=== PATIENT | male | born 1970 | race Caucasian/White ===

== ENCOUNTER 2020-02-10 13:52 | Outpatient (REF) | payer MEDICAID, SELFPAY ==
[2020-02-10 14:14] LABS: HCT 41.7 % (40.0-50.0); HGB 14.3 g/dL (13.5-17.5); Mean Corp. HGB Concentration 34.3 g/dL (32.0-36.0); Mean Corpuscular Hemoglobin 29.7 pg (27.0-33.0); Mean Corpuscular Volume 86.7 fL (80-95); Mean Platelet Volume 11.1 fL (8.0-11.0); Platelet Count 221 x1000/uL (130-400); RBC 4.81 m/cumm (4.50-6.00); RBC Distribution Width 12.9 % (11.8-14.1); White Blood Cell Count 4.41 k/cumm (4.4-10.8)
[2020-02-10 14:23] LABS: ALT 31 U/L (16-63); AST 23 U/L (15-37); Albumin 4.5 g/dL (3.4-5.0); Alkaline Phosphatase 73 U/L (46-116); Anion Gap 6.7 mmol/L (3-11); BUN 14 mg/dL (7-18); Bilirubin, Total 0.2 mg/dL (0.2-1.0); CO2 33.3 mmol/L (21.0-32.0); CREATININE 0.78 mg/dL (0.70-1.30); Calcium 9.1 mg/dL (8.5-10.1); Chloride 102 mmol/L (98-107); Glucose 120 mg/dL (74-106); Potassium 4.5 mmol/L (3.5-5.1); Sodium 142 mmol/L (136-145); Total Protein 7.9 g/dL (6.4-8.2)
[2020-02-10 14:35] LABS: Calculated LDL 104 mg/dL (<100); Cholesterol 166 mg/dL (<200); HDL Cholesterol 53 mg/dL (40-60); Triglyceride 47 mg/dL (<150)
== END 2020-02-10 14:12 ==
LOC: NCHCN 13:52
PROVIDERS: PCP Nurse Practitioner Family; Visit Provider Nurse Practitioner Family
DX: Z13.220 Encounter for screening for lipoid disorders (principal); Z13.228 Encounter for screening for other metabolic disorders; Z13.0 Encounter for screening for diseases of the blood and blood-forming organs and certain disorders involving the immune mechanism; Z00.00 Encounter for general adult medical examination without abnormal findings
CPT/HCPCS: 80053; 80061; 85027

== ENCOUNTER 2020-02-21 01:18 | Emergency (ER) | payer MEDICAID, SELFPAY ==
[2020-02-21 01:13] VITALS: BP 122/83; PULSE 141; RESP 28; TEMP 38; O2SAT 93
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
[2020-02-21 01:31] LABS: Abs Immature Grans 0.04 k/cumm (0.0-0.09); Absolute Basophil Count 0.01 k/cumm (0.0-0.2); Absolute Eosinophil Count 0.03 k/cumm (0.0-0.7); Absolute Lymphocyte Count 1.07 k/cumm (1.2-3.4); Absolute Monocyte Count 0.73 k/cumm (0.11-0.7); Basophils % 0.1; Eosinophils % 0.3; HCT 41.7 % (40.0-50.0); Immature Grans % 0.4 %; Lymphocytes % 9.4; Mean Corpuscular Hemoglobin 30.2 pg (27.0-33.0); Mean Corpuscular Volume 83.9 fL (80-95); Mean Platelet Volume 9.5 fL (8.0-11.0); Monocytes % 6.4; Neutrophils % 83.4; Platelet Count 295 x1000/uL (130-400); RBC 4.97 m/cumm (4.50-6.00); RBC Distribution Width 12.8 % (11.8-14.1); White Blood Cell Count 11.39 k/cumm (4.4-10.8)
[2020-02-21] MEDS: Normal Saline 1,000 ML 1000 ML IV (01:31)
[2020-02-21] MEDS: LORazepam 2 MG/ML VIAL 1 MG IVP (01:31)
[2020-02-21] MEDS: Ketorolac 15 MG/ML VIAL IVP (01:31)
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
[2020-02-21 01:45] LABS: ALT 32 U/L (16-63); AST 30 U/L (15-37); Albumin 4.5 g/dL (3.4-5.0); Alkaline Phosphatase 73 U/L (46-116); BUN 7 mg/dL (7-18); Bilirubin, Total 0.3 mg/dL (0.2-1.0); CREATININE 1.21 mg/dL (0.70-1.30); Calcium 8.9 mg/dL (8.5-10.1); Chloride 104 mmol/L (98-107); Glucose 147 mg/dL (74-106); Potassium 3.1 mmol/L (3.5-5.1); Sodium 143 mmol/L (136-145); Total Protein 8.2 g/dL (6.4-8.2)
[2020-02-21 02:02] LABS: INR 1.1 (0.9-1.1)
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
[2020-02-21 02:29] VITALS: BP 114/69; PULSE 137; RESP 18; O2SAT 95
[2020-02-21] MEDS: Normal Saline Flush 10 ML SYR IVP (02:45)
[2020-02-21] MEDS: Normal Saline - Diluent 50 ML VIAL IV (02:46)
[2020-02-21] MEDS: Omnipaque 350 MG/ML 100 ML BTL IJ (02:46)
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
--- NOTE | 2020-02-21 02:53 | NUR.NOTE ---
MD Cortes in to discuss CT results. Pt declining admission, states he is leaving AMA.
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
[2020-02-21 03:27] VITALS: BP 121/95; PULSE 137; RESP 18; TEMP 37.2; O2SAT 96
--- NOTE | 2020-02-23 21:52 | NUR.NOTE ---
REFERRAL FAXED TO PCP FOR FOLLOW UP CARE Nursing Note:
== END 2020-02-21 03:15 | disposition left against medical advice (07) ==
PROVIDERS: Emergency Provider Emergency Medicine; PCP Nurse Practitioner Family
DX: S22.42XA Multiple fractures of ribs, left side, initial encounter for closed fracture (principal); S27.0XXA Traumatic pneumothorax, initial encounter; Y04.0XXA Assault by unarmed brawl or fight, initial encounter; Z53.29 Procedure and treatment not carried out because of patient's decision for other reasons
CPT/HCPCS: 71275; 74177; 80053; 96374; 96375; 99285; 70450; 72125; 85025; 85610; 85730; 99284; J1885; J2060; J3490; L3650

== ENCOUNTER 2020-02-21 18:25 | Emergency (ER) | payer MEDICAID, SELFPAY ==
[2020-02-21 18:30] VITALS: BP 131/80; PULSE 105; RESP 16; TEMP 37; O2SAT 98
--- NOTE | 2020-02-21 18:30 | DI.RAD_ITS ---
EXAM: XR CHEST 2V PA LATERAL CLINICAL HISTORY: r/o worsening PTX, infection TECHNIQUE: 2D digital imaging was performed. COMPARISON: No exams were available for comparison FINDINGS: MEDIASTINUM: Normal. HEART: Normal. PULMONARY VASCULATURE: Normal. LUNGS: There is an infiltrate in the right lung base medially. PLEURAL SPACE: Pleural effusion is present. Pneumothorax is not visualized on this examination. BONE:No fractures identified on this chest x-ray. Please refer to the CT scan of the chest, abdomen and pelvis. OTHER FINDINGS:Normal. IMPRESSION: Opacity in the right lung base medially. This may represent atelectasis, pneumonia or contusion. No significant pneumothorax identified on this chest x-ray. DATA REPOSITORY: RADIATION DOSE DELIVERED:
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
--- NOTE | 2020-02-21 19:13 | DI.VRAD_ITS ---
PROCEDURE INFORMATION: Exam: XR Chest, 2 Views Exam date and time: 02/21/2020 6:37 PM Age: 49 years old Clinical indication: Condition or disease; Other: Pneumothorax; Additional info: R/O worsening ptx, infection. Diagnosed with/l rib FX this morning TECHNIQUE: Imaging protocol: XR of the chest Views: 2 views. COMPARISON: CT CHEST PE ABD PELVIS W 02/21/2020 2:10 AM FINDINGS: Lungs: Opacity in the medial right base may represent atelectasis, pneumonia, or contusion. Pleural space: No significant pneumothorax visualized on the chest x-ray. Heart/Mediastinum: Unremarkable. No cardiomegaly. Bones/joints: Left rib fracture is not visualized well on the chest x-ray. IMPRESSION: 1. Opacity in the medial right base may represent atelectasis, pneumonia, or contusion. 2. No significant pneumothorax visualized on the chest x-ray. 3. Left rib fracture is not visualized well on the chest x-ray. Dictated and Authenticated by: Mira Sanchez MD. Ordering:MIKAYLA Kinsey MD
== END 2020-02-21 19:50 | disposition left against medical advice (07) ==
PROVIDERS: Emergency Provider Physician Assistant; PCP Nurse Practitioner Family
DX: S22.42XD Multiple fractures of ribs, left side, subsequent encounter for fracture with routine healing (principal); S27.0XXD Traumatic pneumothorax, subsequent encounter; Y04.0XXD Assault by unarmed brawl or fight, subsequent encounter; Z53.29 Procedure and treatment not carried out because of patient's decision for other reasons
CPT/HCPCS: 99283; 71046

== ENCOUNTER 2020-03-09 19:58 | Outpatient (REF) | payer MEDICAID, SELFPAY ==
[2020-03-09 19:27] LABS: Hemoglobin A1C 5.6 % (3.8-5.6)
[2020-03-09 19:29] LABS: TSH (W/Ref FT4) 1.71 uIU/mL (0.36-3.74)
== END 2020-03-09 20:18 ==
LOC: NCHCN 19:58
PROVIDERS: PCP Nurse Practitioner Family; Visit Provider Nurse Practitioner Family
DX: R73.01 Impaired fasting glucose (principal); R63.0 Anorexia
CPT/HCPCS: 83036; 84443

== ENCOUNTER 2020-11-26 13:31 | Emergency (ER) | payer MEDICAID, SELFPAY ==
[2020-11-26] VITALS (26 sets, daily range): BP systolic 76–101; BP diastolic 39–69; PULSE 66–91; RESP 6–26; TEMP 37.2; O2SAT 92–100
--- NOTE | 2020-11-26 13:30 | DI.CT_ITS ---
EXAM: CT ABDOMEN PELVIS W CLINICAL HISTORY: Abdominal Pain. TECHNIQUE: Imaging Protocol: Axial computed tomography images with coronal and sagittal reformatted images were created and reviewed CONTRAST MATERIAL: Intravenous: Omnipaque 100cc Oral: None COMPARISON: CT CT CHEST PE ABD PELVIS W from 02/21/2020 FINDINGS: VISUALIZED LUNG BASES: No nodules nor pleural effusions evident. No pneumothorax seen. ABDOMEN: There is no ascites. No evidence of bowel wall nor mesenteric hematoma. LIVER: No hepatic laceration. No perihepatic fluid. No significant hepatic lesions. GALLBLADDER/BILIARY: No obvious gallbladder pathology. CBD is not dilated. PANCREAS: There are few small parenchymal calcifications in the pancreatic head. No obvious mass. N o ductal dilatation. No peripancreatic streaking. SPLEEN: Spleen size is upper normal. No splenic laceration or perisplenic fluid. No splenic lesions . Splenic and portal veins are patent. Splenic and portal veins are patent. ADRENALS: There are no significant adrenal masses. KIDNEYS:No evidence of renal trauma. No solid renal masses. No calculi nor hydronephrosis.. ABDOMINAL AORTA: Unremarkable. No evidence of trauma. No aneurysm. Aortoiliac segments and common femoral arteries are also unremarkable. ABDOMINAL WALL/GI: No evidence of significant anterior abdominal wall hernia. No bowel obstruction. PELVIS: GI: No evidence of appendicitis.No evidence of sigmoid diverticulitis. LYMPH NODES: There is no intrapelvic nor inguinal adenopathy. REPRODUCTIVE: Prostate not enlarged. URINARY BLADDER: Slightly distended otherwise unremarkable. OSSEOUS: No significant osseous lesions. IMPRESSION: 1. No significant acute findings in the abdomen and pelvis. RADIATION DOSE DELIVERED: 681.05mGy.cm Total DLP DATA REPOSITORY: All CT scans at this facility are submitted to the National Radiology Data Registry (NRDR) Dose Index Registry (DIR) with the [employer] (ACR). RADIATION OPTIMIZATION: All CT scans at this facility use at least one of these dose optimization te chniques: automated exposure control; mA and/or kV adjustment per patient size (includes targeted exa ms where dose is matched to clinical indication); or iterative reconstruction.
--- NOTE | 2020-11-26 13:30 | RT.EKG_ITS ---
APPROVED REPORT Exam: Resting ECG Patient Location: E HR:87 bpm ECG Measurements Heart Rate 87 AXIS ND 140 P 25 QRSd 99 QRS 74 QT 382 T 18 QTc 461 Conclusion Sinus rhythm...normal P axis, V-rate 60- 99
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
[2020-11-26 14:02] LABS: Abs Immature Grans 0.02 10^3/uL (0.0-0.06); Absolute Basophil Count 0.02 10^3/uL (0.0-0.2); Absolute Eosinophil Count 0.09 10^3/uL (0.0-0.7); Absolute Monocyte Count 0.54 10^3/uL (0.1-0.8); Absolute Neutrophil Count 3.91 10^3/uL (1.2-6.7); Basophils % 0.3; Eosinophils % 1.4; HCT 38.3 % (40.0-50.0); HGB 13.3 g/dL (13.5-17.5); Immature Grans % 0.3; Lymphocytes % 28.2; MCHC 34.7 % (32.0-36.0); MCV 83.6 fL (80-95); Monocytes % 8.5; Neutrophils % 61.3; Nucleated RBC 0 %; Platelet Count 230 10^3/uL (130-400); RBC 4.58 10^6/uL (4.36-5.78); RDW 12.2 % (11.8-14.1); WBC 6.38 10^3/uL (4.4-10.8)
[2020-11-26] MEDS: MORPHine 10 MG/ML VIAL 4 MG IVP (14:05)
[2020-11-26] MEDS: Ondansetron 4 MG/2 ML VIAL IVP (14:05)
[2020-11-26 14:06] LABS: Lactate 1.7 mmol/L (0.6-1.4)
[2020-11-26] MEDS: Normal Saline 1,000 ML 1000 ML IV ×2 (14:11→15:31)
[2020-11-26 14:23] LABS: ALT 40 U/L (16-63); AST 41 U/L (15-37); Albumin 3.9 g/dL (3.4-5.0); Alkaline Phosphatase 77 U/L (46-116); Anion Gap 8.4 mmol/L (3-11); BUN 22 mg/dL (7-18); Bilirubin, Total 0.6 mg/dL (0.2-1.0); CO2 27.6 mmol/L (21.0-32.0); CREATININE 1.01 mg/dL (0.70-1.30); Calcium 9.4 mg/dL (8.5-10.1); Chloride 101 mmol/L (98-107); Glucose 108 mg/dL (74-106); Lipase 192 U/L (73-393); Potassium 3.4 mmol/L (3.5-5.1); Sodium 137 mmol/L (136-145); Total Protein 7.5 g/dL (6.4-8.2)
[2020-11-26 14:29] LABS: Troponin I < 0.05 ng/mL (<0.06)
[2020-11-26] MEDS: Omnipaque 350 MG/ML 100 ML BTL IJ (15:27)
[2020-11-26 15:47] LABS: Bilirubin Negative (Negative); Blood Negative (Negative); Clarity Clear (Clear); Glucose Negative (Negative); Ketones Negative (Negative); Leukocyte Esterase Negative (Negative); Nitrite Negative (Negative); Specific Gravity 1.025 (1.005-1.025); Urobilinogen 0.2 EU/dL (Up TO 0.2)
[2020-11-26 16:15] LABS: *AMPHETAMINES SCREEN URINE Negative (Negative); *BARBITURATES SCREEN URINE Negative (Negative); *BENZODIAZEPINES SCREEN URINE Negative (Negative); Cannabinoids THC Negative (Negative); Cocaine Screen,Urine Negative (Negative); METHADONE URINE SCREEN Negative (Negative); OPIATES URINE SCREEN POSITIVE (Negative)
[2020-11-26 16:21] LABS: Tricyclic Antidepressants Negative (Negative)
== END 2020-11-26 16:09 | disposition home or self-care (01) ==
PROVIDERS: Emergency Provider Registered Nurse Emergency; PCP Nurse Practitioner Family
DX: R10.31 Right lower quadrant pain (principal); M54.5 Low back pain; I95.0 Idiopathic hypotension
CPT/HCPCS: 36415; 80053; 80307; 83690; 93005; 96361; 96374; 96375; 99285; 74177; 81003; 83605; 83735; 84484; 85025; 93010; J2270; J2405; J3490

== ENCOUNTER 2021-07-29 11:48 | Emergency (ER) | payer MEDICAID, SELFPAY ==
[2021-07-29 11:53] VITALS: BP 115/70; PULSE 84; RESP 15; TEMP 36.5; O2SAT 99
--- NOTE | 2021-07-29 12:09 | ED.GENADUL_ITS ---
Discharge Plan Disposition Patient Disposition: HOME Condition: Good Discharge Details Clinical Impression: Rash Primary Care Provider: Sharmaine Rodriguez ED Provider: Inés Tuttle Home Meds and New Rx's Prescriptions: New cephalexin 500 mg capsule 500 mg PO QID Qty: 28 RF: 0 Continued escitalopram oxalate [Lexapro] 20 mg Tablet 20 mg PO DAILY RF: 0 omeprazole 20 mg Tablet,Delayed Release (Dr/Ec) 20 mg PO DAILY RF: 0 buprenorphine-naloxone [Suboxone] 8-2 mg Film 2 film SUBLINGUAL DAILY RF: 0 Latuda 60 mg Tablet 60 mg PO DAILY RF: 0 clonidine HCl 0.2 mg tablet 0.2 mg PO TID RF: 0 gabapentin 300 mg capsule 300 mg PO BID RF: 0 dexmethylphenidate [Focalin XR] 15 mg capsule,ER biphasic 50-50 15 mg PO DAILY RF: 0 dexmethylphenidate [Focalin XR] 40 mg capsule,ER biphasic 50-50 40 mg PO DAILY RF: 0 prazosin 1 mg capsule 1 mg PO DAILY RF: 0 Discharge Instructions Instructions: Acute Rash (ED) Additional Instructions: Take antibiotic as prescribed Yogurt daily while on antibiotic Warm compresses Should you have persistent lesions in 1 week, recommend outpatient mammogram at the discretion of your doctor, please be reassessed by your doctor at this time Medical Decision Making Patient placed on antibiotic, will need a mammogram with persistent lesion Pain out appears to be infectious, less tender and erythematous, no fluctuance, no indication for aspiration at this time Given the threshold for return with new or worsening complaints Afebrile nontoxic, denies any current IV drug abuse Discharged home in stable condition with stable vitals Recheck in 1 week recommended, earlier with worsening symptoms Keflex prescription applied HPI General Mode of arrival: ambulatory . Date/Time Provider Initiated Documentation: 07/29/21 12:04 . Limitations to Documentation: no limitations . Information obtained by: patient . HPI Narrative: This 51-year-old male presents with left chest which is morning. Denies any additional complaints. Denies any chest pain or shortness of breath. Denies any dizziness or weakness. Denies any history of breast cancer. Denies any drainage from nipple. Denies any history of IV drug abuse in the past 5 years. Related Data Home Medications Medication Instructions Recorded Confirmed Latuda 60 mg PO DAILY 02/21/20 07/29/21 buprenorphine-naloxone [Suboxone] 2 film SUBLINGUAL DAILY 02/21/20 07/29/21 escitalopram oxalate [Lexapro] 20 mg PO DAILY 02/21/20 07/29/21 omeprazole 20 mg PO DAILY 02/21/20 07/29/21 cephalexin 500 mg PO QID #28 cap 07/29/21 clonidine HCl 0.2 mg PO TID 07/29/21 07/29/21 dexmethylphenidate [Focalin XR] 15 mg PO DAILY 07/29/21 07/29/21 dexmethylphenidate [Focalin XR] 40 mg PO DAILY 07/29/21 07/29/21 gabapentin 300 mg PO BID 07/29/21 07/29/21 prazosin 1 mg PO DAILY 07/29/21 07/29/21 Previous Rx's Medication Instructions Recorded cephalexin 500 mg PO QID #28 cap 07/29/21 Allergies Allergy/AdvReac Type Severity Reaction Status Date / Time sulfamethoxazole Allergy Hives Unverified 07/29/21 11:58 [From Bactrim] trimethoprim [From Bactrim] Allergy Hives Unverified 07/29/21 11:58 General Stated Complaint: RashLesion MANUEL: 4 Review of Systems All systems reviewed & are unremarkable except as noted in HPI and below PFSH Medical History Narcotic abuse in remission Surgical History History of appendectomy Social History Smoking/Tobacco Use Status: Never Smoking risk assessment performed?: Yes Alcohol Intake: current Alcohol Intake frequency: holidays/special occasions only Alcohol type: beer Substance use type: other Details: suboxone Do you feel safe at home: Yes Do you feel safe in your relationship?: Yes Exam Const General: cooperative and no acute distress Eyes Pupils: PERRL Chest Chest/axillae images: 1. Erythematous lesion, tender, approximately 6 mm, no fluctuance, no crepitus, no nipple discharge, no obvious lymphangitis Course Vital Signs Vital signs: Vital Signs Temperature 36.5 C 07/29/21 11:53 Pulse 84 07/29/21 11:53 Respiratory Rate 15 07/29/21 11:53 Blood Pressure 115/70 07/29/21 11:53 Pulse Oximetry 99 07/29/21 11:53 Temperature 36.5 C 07/29/21 11:53 Temperature Source Temporal Artery Scan 07/29/21 11:53 Pulse 84 07/29/21 11:53 Respiratory Rate 15 07/29/21 11:53 Respiratory Effort Non-Labored 07/29/21 11:57 Blood Pressure 115/70 07/29/21 11:53 Blood Pressure Position Sitting 07/29/21 11:53 Pulse Oximetry 99 07/29/21 11:53 Oxygen Delivery Method Room Air 07/29/21 11:53 Oxygen Flow Rate 0 07/29/21 11:53 Pain Level 7 07/29/21 11:53
== END 2021-07-29 12:18 | disposition home or self-care (01) ==
PROVIDERS: Emergency Provider Physician Assistant; PCP Nurse Practitioner Family
DX: R21 Rash and other nonspecific skin eruption (principal)
CPT/HCPCS: 99283

== ENCOUNTER 2022-05-27 15:04 | Outpatient (REF) | payer MEDICAID, SELFPAY ==
[2022-05-27 15:22] LABS: HCT 42.6 % (40.0-50.0); HGB 14.3 g/dL (13.5-17.5); MCH 28.8 pg (27.0-33.0); MCHC 33.6 % (32.0-36.0); MCV 86 fL (80-95); MPV 10.1 fL (8.0-11.0); Platelet Count 250 10^3/uL (130-400); RBC 4.96 10^6/uL (4.36-5.78); RDW 13.1 % (11.8-14.1); RDW-SD 40.6 fL; WBC 6.72 10^3/uL (4.4-10.8)
[2022-05-27 15:38] LABS: ALT 70 U/L (16-63); AST 45 U/L (15-37); Albumin 4.5 g/dL (3.4-5.0); Alkaline Phosphatase 78 U/L (46-116); Anion Gap 12.9 mmol/L (3-11); BUN 17 mg/dL (7-18); Bilirubin, Total 0.6 mg/dL (0.2-1.0); CO2 25.1 mmol/L (21.0-32.0); CREATININE 1.1 mg/dL (0.70-1.30); Calcium 9.5 mg/dL (8.5-10.1); Calculated LDL 129 mg/dL (<100); Chloride 100 mmol/L (98-107); Cholesterol 207 mg/dL (<200); Glucose 142 mg/dL (74-106); HDL Cholesterol 70 mg/dL (40-60); Potassium 3.7 mmol/L (3.5-5.1); Sodium 138 mmol/L (136-145); TSH (W/Ref FT4) 1.23 uIU/mL (0.36-3.74); Total Protein 8.2 g/dL (6.4-8.2); Triglyceride 44 mg/dL (<150)
[2022-05-27 17:39] LABS: Hemoglobin A1C 5.7 % (<5.7)
== END 2022-05-27 15:05 | disposition home or self-care (01) ==
LOC: NCHCN 15:04
PROVIDERS: PCP Nurse Practitioner Family; Visit Provider Nurse Practitioner Family
DX: R63.4 Abnormal weight loss (principal); R73.03 Prediabetes; R79.89 Other specified abnormal findings of blood chemistry; Z00.00 Encounter for general adult medical examination without abnormal findings
CPT/HCPCS: 80053; 80061; 85027; 83036; 84443

== ENCOUNTER → 2022-06-01 02:14 | Outpatient (CLI) | payer MEDICAID, SELFPAY ==
--- NOTE | 2022-06-01 | DI.RAD_ITS ---
Exam(s) XR CHEST 2V PA LATERAL EXAM: XR CHEST 2V PA LATERAL CLINICAL HISTORY: SOB R06.02. TECHNIQUE: 2D digital imaging was performed. COMPARISON: CR,XR XR CHEST 2V PA LATERAL from 02/21/2020 FINDINGS: 2 views: Heart size is normal. The mediastinum is not widened. Lungs are clear. No infiltrates nor pleural effusions. IMPRESSION: No acute pulmonary findings. DATA REPOSITORY: RADIATION DOSE DELIVERED:
== END ==
PROVIDERS: PCP Nurse Practitioner Family; Visit Provider Nurse Practitioner Family
DX: R06.02 Shortness of breath (principal)
CPT/HCPCS: 71046

== ENCOUNTER 2022-06-30 13:50 | Outpatient (REF) | payer MEDICAID, SELFPAY ==
[2022-07-01 09:46] LABS: HBs Antibody, Quant 40.4 mIU/mL (See Note); Hepatitis B Surface Ab Positive (See Note)
[2022-07-01 10:02] LABS: Hepatitis B Surface Ag Negative (Negative)
[2022-07-01 11:11] LABS: Hepatitis C Ab w Rflx HCV PCR Reactive (Negative)
[2022-07-04 12:40] LABS: HCV RNA Qualitative Detected (Undetected)
== END 2022-06-30 13:51 | disposition home or self-care (01) ==
LOC: NCHCN 13:50
PROVIDERS: PCP Nurse Practitioner Family; Visit Provider Nurse Practitioner Family
DX: B19.20 Unspecified viral hepatitis C without hepatic coma (principal); R79.89 Other specified abnormal findings of blood chemistry
CPT/HCPCS: 86706; 86803; 87340; 87522

== ENCOUNTER 2022-07-05 09:39 | Outpatient (REF) | payer MEDICAID, SELFPAY ==
[2022-07-06 13:34] LABS: HCV RNA Detection Quantitative 2120000 IU/mL (Undetected); HCV RNA Qualitative Detected (Undetected)
== END 2022-07-05 09:40 | disposition home or self-care (01) ==
LOC: NCHCN 09:39
PROVIDERS: PCP Nurse Practitioner Family; Visit Provider Nurse Practitioner Family
DX: B19.20 Unspecified viral hepatitis C without hepatic coma (principal)
CPT/HCPCS: 87522

== ENCOUNTER 2022-08-02 17:55 | Outpatient (REF) | payer MEDICAID, SELFPAY ==
[2022-08-04 09:13] LABS: HIV-1/2 Ag & Ab Screen Negative (Negative)
[2022-08-04 09:14] LABS: Hep B Core Antibody Negative (Negative)
[2022-08-04 10:24] LABS: Hep A Total Ab w Rflx IgM Positive (Negative)
[2022-08-04 12:21] LABS: Hep A Antibody IgM Negative (Negative)
[2022-08-05 08:41] LABS: HCV Genotype 1a (Undetected)
== END 2022-08-02 17:56 | disposition home or self-care (01) ==
LOC: NCHCN 17:55
PROVIDERS: PCP Nurse Practitioner Family; Visit Provider Family Medicine
DX: B19.20 Unspecified viral hepatitis C without hepatic coma (principal); Z11.4 Encounter for screening for human immunodeficiency virus [HIV]
CPT/HCPCS: 86704; 86709; 87389; 87521

== ENCOUNTER 2022-08-24 06:07 | Emergency (ER) | payer MEDICAID, SELFPAY ==
[2022-08-24 06:18] VITALS: BP 121/80; PULSE 91; RESP 18; TEMP 36.9; O2SAT 97
--- NOTE | 2022-08-24 06:30 | DI.RAD_ITS ---
Exam(s) XR PORTABLE CHEST AP EXAM: XR PORTABLE CHEST AP CLINICAL HISTORY: cough, CP, SOB TECHNIQUE: 2D digital imaging was performed. COMPARISON: CR XR CHEST 2V PA LATERAL from 06/01/2022 FINDINGS: LUNGS: Clear. No pleural abnormality seen. HEART: Normal. AORTA: Normal. BONES: Unremarkable for age. Soft tissues: Unremarkable. IMPRESSION: No acute findings. DATA REPOSITORY: RADIATION DOSE DELIVERED:
--- NOTE | 2022-08-24 06:30 | RT.EKG_ITS ---
APPROVED REPORT Exam: Resting ECG Reason for Exam: Patient Location: E HR:65 bpm ECG Measurements Heart Rate 65 AXIS LA 145 P 56 QRSd 88 QRS 84 QT 392 T 29 QTc 410 Conclusion Sinus rhythm...normal P axis, V-rate 60- 99 Normal Electrocardiogram
--- NOTE | 2022-08-24 06:38 | ED.GENADUL_ITS ---
Discharge Plan Disposition Patient Disposition: STILL A PATIENT Condition: Stable Discharge Details Clinical Impression: URI (upper respiratory infection), Asthma exacerbation Primary Care Provider: Sharmaine Rodriguez ED Provider: Kush Balderas [facility] Meds and New Rx's Prescriptions: No Action pramipexole 1 mg tablet 1 mg PO DAILY zolpidem [Ambien] 5 mg tablet 5 mg PO QHS PRN dexmethylphenidate [Focalin XR] 15 mg capsule,ER biphasic 50-50 15 mg PO DAILY buprenorphine-naloxone [Suboxone] 8-2 mg film 2 film sublingual DAILY Rx Instructions: place 1 strip/tab under (each) side of tongue escitalopram oxalate [Lexapro] 20 mg tablet 40 mg PO DAILY Latuda 40 mg tablet 40 mg PO DAILY Rx Instructions: must administer with food (at least 350 calories) gabapentin 100 mg capsule 100 mg PO BID omeprazole 20 mg Tablet,Delayed Release (Dr/Ec) 20 mg PO DAILY clonidine HCl 0.2 mg tablet 0.2 mg PO TID Medical Decision Making Patient presenting with URI type symptoms associated with nausea and vomiting, lightheadedness, left-sided chest pain worse with coughing. He has diffuse wheezing and rhonchi bilaterally. He reports history of asthma. Chest pain is reproducible and likely musculoskeletal. However he is 52 and has documented prediabetes. This is all most likely viral in nature but we will obtain EKG, portable chest x-ray, COVID swab, laboratory studies including 1 troponin. We will hydrate as I suspect the lightheaded and dizziness is related to dehydration as he reports nausea and vomiting with any attempted p.o. Will dose with Zofran. Patient's EKG is normal. Laboratory studies are normal. Troponin negative. He has completed his neb treatment and steroids have been given. COVID and chest x-ray pending. Patient signed out to oncoming physician for ultimate disposition which should be home. Lab Data Lab results reviewed: Yes I reviewed the patient's lab results. ECG Data Attestation: I personally reviewed and interpreted this ECG (s) as follows: Prior ECG tracings: available for review Interpretation: See EKG HPI General Mode of arrival: ambulatory . Date/Time Provider Initiated Documentation: 08/24/22 06:23 . Limitations to Documentation: no limitations . Information obtained by: patient and RN notes reviewed . HPI Narrative: Patient presents to ED with URI symptoms, nausea/vomiting, dizziness that began last week and has progressively become worse. He reports nausea/vomiting anytime he tries to eat or drink anything. He denies any abdominal pain. Coughing will also make him vomit at times. He has left-sided chest pain mostly with coughing. He does feel short of breath. He is dizzy and lightheaded anytime he tries to do anything. He has had COVID vaccinations. He has not tried anything [id number] at home. He does report a history of asthma. He denies smoking. Feels like he is just getting worse and came to ED this morning with him going to work. Related Data Home Medications Medication Instructions Recorded Confirmed omeprazole 20 mg tablet,delayed 20 mg PO DAILY 02/21/20 08/24/22 release clonidine HCl 0.2 mg tablet 0.2 mg PO TID 07/29/21 08/24/22 pramipexole 1 mg tablet 1 mg PO DAILY 09/17/21 08/24/22 buprenorphine 8 mg-naloxone 2 mg 2 film sublingual DAILY 07/04/22 08/24/22 sublingual film (Suboxone) dexmethylphenidate 15 mg 15 mg PO DAILY 07/04/22 08/24/22 capsule,extended release [id number] (Focalin XR) escitalopram oxalate 20 mg tablet 40 mg PO DAILY 07/04/22 08/24/22 (Lexapro) gabapentin 100 mg capsule 100 mg PO BID 07/04/22 08/24/22 lurasidone 40 mg tablet (Latuda) 40 mg PO DAILY 07/04/22 08/24/22 zolpidem 5 mg tablet (Ambien) 5 mg PO QHS PRN 07/04/22 08/24/22 Allergies Allergy/AdvReac Type Severity Reaction Status Date / Time mushroom Allergy Unknown Verified 08/24/22 06:22 sulfamethoxazole Allergy Hives Unverified 08/24/22 06:22 [From Bactrim] trimethoprim [From Bactrim] Allergy Hives Unverified 08/24/22 06:22 General Stated Complaint: RespSymp MANUEL: 3 Review of Systems Narrative: 09/02 Review of Systems completed and is negative except as stated above in HPI (Systems reviewed: Const, Eyes, ENT, Resp, CV, GI, , MSK, Skin, Neuro) PFSH All Active Problems (Updated 08/24/22 @ 07:30 by Kush Balderas MD) URI (upper respiratory infection) (Acute) Asthma exacerbation (Acute) Shortness of breath (Acute) Unintentional weight loss (Acute) Screening for colon cancer (Acute) Medical History (Updated 08/24/22 @ 07:30 by Kush Balderas MD) Chronic low back pain GERD (gastroesophageal reflux disease) History of prediabetes Narcotic abuse in remission PTSD (post-traumatic stress disorder) Rash RLS (restless legs syndrome) Surgical History History of appendectomy Social History Smoking/Tobacco Use Status: Never Smoking risk assessment performed?: Yes Alcohol Intake: current Alcohol Intake frequency: holidays/special occasions only Alcohol type: beer Substance use type: other Details: suboxone Do you feel safe at home: Yes Do you feel safe in your relationship?: Yes Exam Narrative Exam Narrative: Const: WDWN male in NAD. HEENT: NC/AT. Normal facial exam. TMs clear bilaterally. Oropharynx without erythema, exudate, swelling. Eyes: Normal conjunctiva and sclera. Neck: Supple. Trachea midline. Lungs: Normal respiratory effort. Lungs with diffuse wheezing and rhonchi throughout. Reproducible left anterior chest pain. Cor: RRR without murmur/gallop. Good radial pulses. GI: Soft. NT/ND. No guarding or rebound. Neuro: A+O x 3. Normal speech, mentation, gait. Cranial nerves II - XII grossly intact. No gross motor or sensory deficit. Ext: No C/C/E. Skin: Warm and dry without rash. Course Vital Signs Vital signs: Vital Signs Temperature 98.5 F 08/24/22 06:18 Pulse 91 H 08/24/22 06:18 Respiratory Rate 18 08/24/22 06:18 Blood Pressure 121/80 08/24/22 06:18 Pulse Oximetry 97 08/24/22 06:18 Temperature 98.5 F 08/24/22 06:18 Temperature Source Oral 08/24/22 06:18 Pulse 91 H 08/24/22 06:18 Respiratory Rate 18 08/24/22 06:18 Respiratory Effort 08/24/22 06:29 Blood Pressure 121/80 08/24/22 06:18 Pulse Oximetry 97 08/24/22 06:18 Pain Level 6 08/24/22 06:18
[2022-08-24] MEDS: methylPREDNISolone SUCC 125 MG VIAL IVP (07:01)
[2022-08-24] MEDS: Normal Saline 1,000 ML 1000 ML IV (07:01)
[2022-08-24] MEDS: Albuterol/Ipratropium 3 ML UPD VIAL UPD (07:01)
[2022-08-24] MEDS: Ondansetron 4 MG/2 ML VIAL IVP (07:02)
[2022-08-24 07:03] LABS: Abs Immature Grans 0.02 10^3/uL (0.0-0.06); Absolute Basophil Count 0.03 10^3/uL (0.0-0.2); Absolute Eosinophil Count 0.06 10^3/uL (0.0-0.7); Absolute Lymphocyte Count 1.01 10^3/uL (1.2-3.4); Absolute Monocyte Count 0.49 10^3/uL (0.1-0.8); Basophils % 0.4; Eosinophils % 0.8; HCT 42.6 % (40.0-50.0); HGB 14.6 g/dL (13.5-17.5); Immature Grans % 0.3; Lymphocytes % 14.2; MCH 29.1 pg (27.0-33.0); MCHC 34.3 % (32.0-36.0); MCV 85 fL (80-95); MPV 9.7 fL (8.0-11.0); Monocytes % 6.9; Neutrophils % 77.4; Platelet Count 239 10^3/uL (130-400); RBC 5.01 10^6/uL (4.36-5.78); RDW 12.2 % (11.8-14.1); RDW-SD 37.7 fL; WBC 7.11 10^3/uL (4.4-10.8)
[2022-08-24 07:25] LABS: ALT 47 U/L (16-63); AST 41 U/L (15-37); Albumin 4.1 g/dL (3.4-5.0); Alkaline Phosphatase 93 U/L (46-116); Anion Gap 6.2 mmol/L (3-11); BUN 11 mg/dL (7-18); Bilirubin, Total 0.7 mg/dL (0.2-1.0); CO2 30.8 mmol/L (21.0-32.0); CREATININE 0.9 mg/dL (0.70-1.30); Calcium 9.4 mg/dL (8.5-10.1); Chloride 101 mmol/L (98-107); Estimated GFR 102.76 (mL/min/1.73m2); Glucose 118 mg/dL (74-106); Potassium 3.6 mmol/L (3.5-5.1); Sodium 138 mmol/L (136-145); Total Protein 8.3 g/dL (6.4-8.2); Troponin I < 50 ng/L (<or=60)
[2022-08-24 07:59] LABS: COVID-19 PCR Negative (Negative); Influenza A PCR Negative (Negative); Influenza B PCR Negative (Negative); RSV PCR Negative (Negative)
[2022-08-24 08:00] LABS: Source Nasopharynx
--- NOTE | 2022-08-24 09:07 | W.EDPROG ---
Date of service: 08/24/22 Time of Service: 10:02 Medical Decision Making Care was signed out by Dr. Balderas with plan to follow-up on labs and chest x-ray and reassess patient for disposition. Chest x-ray was reviewed and interpreted by radiology as normal. Labs reviewed and nondiagnostic. COVID and flu negative. Patient was reassessed and feeling much better, requesting discharge. Patient be discharged to follow-up with his primary care physician. I will prescribe albuterol inhaler as he notes he ran out of his as well as a burst course of prednisone. Usual customary discharge instructions were reviewed with the patient he was encouraged to return immediately should any worsening or new concerning symptoms. Patient requested work note for today and tomorrow which was provided. Lab Data Lab results reviewed: Yes I reviewed the patient's lab results. Labs: Laboratory Tests Range/Units 08/24/22 08/24/22 08/24/22 06:53 06:53 06:53 WBC (4.4-10.8) 10^3/uL 7.11 RBC (4.36-5.78) 10^6/uL 5.01 Hgb (13.5-17.5) g/dL 14.6 Hct (40.0-50.0) % 42.6 MCV (80-95) fL 85 MCH (27.0-33.0) pg 29.1 MCHC (32.0-36.0) % 34.3 RDW (11.8-14.1) % 12.2 Plt Count (130-400) 10^3/uL 239 MPV (8.0-11.0) fL 9.7 Immature Gran % 0.3 Neutrophils % 77.4 Lymphocytes % 14.2 Monocytes % 6.9 Eosinophils % 0.8 Basophils % 0.4 Nucleated RBC % (0.0-0.3) % 0.0 Absolute Neutrophils (1.2-6.7) 10^3/uL 5.50 Absolute Lymphocytes (1.2-3.4) 10^3/uL 1.01 L Absolute Monocytes (0.1-0.8) 10^3/uL 0.49 Absolute Eosinophils (0.0-0.7) 10^3/uL 0.06 Absolute Basophils (0.0-0.2) 10^3/uL 0.03 Sodium (136-145) mmol/L 138 Potassium (3.5-5.1) mmol/L 3.6 Chloride (98-107) mmol/L 101 Carbon Dioxide (21.0-32.0) mmol/L 30.8 Anion Gap (3-11) mmol/L 6.2 BUN (7-18) mg/dL 11 Creatinine (0.70-1.30) mg/dL 0.9 Est GFR (CKD-EPI 2020) (mL/min/1.73m2) 102.76 Glucose (74-106) mg/dL 118 H Calcium (8.5-10.1) mg/dL 9.4 Total Bilirubin (0.2-1.0) mg/dL 0.7 AST (15-37) U/L 41 H ALT (16-63) U/L 47 Alkaline Phosphatase (46-116) U/L 93 Troponin I (<or=60) ng/L < 50 Total Protein (6.4-8.2) g/dL 8.3 H Albumin (3.4-5.0) g/dL 4.1 COVID-19 Source Nasopharynx SARS-CoV-2 (PCR) (Negative) Negative Influenza Type A (PCR) (Negative) Negative Influenza Type B (PCR) (Negative) Negative RSV (PCR) (Negative) Negative Sign Out Sign Out Data: Sign Out Comment: Pending chest x-ray, COVID swab, reevaluation. Last updated by Kush Balderas MD at 08/24/22 07:31 Discharge Plan Disposition Patient Disposition: HOME Condition: Stable Discharge Details Clinical Impression: URI (upper respiratory infection), Asthma exacerbation Primary Care Provider: Sharmaine Rodriguez ED Provider: Frantz Carlos Home Meds and New Rx's Prescriptions: New albuterol sulfate [ProAir HFA] 90 mcg/actuation HFA aerosol inhaler 2 puff inhalation Q6H PRN (Reason: shortness of breath or wheezing) Qty: 8.5 0RF prednisone 20 mg tablet 40 mg PO DAILY Qty: 8 0RF Rx Instructions: start 08/25/22 Continued pramipexole 1 mg tablet 1 mg PO DAILY zolpidem [Ambien] 5 mg tablet 5 mg PO QHS PRN dexmethylphenidate [Focalin XR] 15 mg capsule,ER biphasic 50-50 15 mg PO DAILY buprenorphine-naloxone [Suboxone] 8-2 mg film 2 film sublingual DAILY Rx Instructions: place 1 strip/tab under (each) side of tongue escitalopram oxalate [Lexapro] 20 mg tablet 40 mg PO DAILY Latuda 40 mg tablet 40 mg PO DAILY Rx Instructions: must administer with food (at least 350 calories) gabapentin 100 mg capsule 100 mg PO BID omeprazole 20 mg Tablet,Delayed Release (Dr/Ec) 20 mg PO DAILY clonidine HCl 0.2 mg tablet 0.2 mg PO TID Discharge Instructions Instructions: Asthma (ED), Upper Respiratory Infection (ED) Additional Instructions: Please take medication as prescribed. Please contact your primary care physician to arrange follow-up. Return to the ER immediately for any worsening or new concerning symptoms. Stand Alone Forms: Work Release Referrals: Sharmaine Rodriguez [Primary Care Provider] -
[2022-08-24 09:16] VITALS: BP 118/66; PULSE 95; RESP 16; O2SAT 95
== END 2022-08-24 09:23 | disposition home or self-care (01) ==
PROVIDERS: Emergency Medicine; Emergency Provider Student in an Organized Health Care Education/Training Program; PCP Nurse Practitioner Family
DX: J06.9 Acute upper respiratory infection, unspecified (principal); J45.901 Unspecified asthma with (acute) exacerbation; Z20.822 Contact with and (suspected) exposure to COVID-19
CPT/HCPCS: 80053; 87637; 93005; 94640; 96361; 96374; 96375; 99284; 71045; 84484; 85025; 93010; J2405; J2930; J7620

== ENCOUNTER 2022-09-08 13:52 | Outpatient (REF) | payer MEDICAID, SELFPAY | END 2022-09-08 13:53 | disposition home or self-care (01) | LOC: NCHCN 13:52 | PROVIDERS: PCP Nurse Practitioner Family; Visit Provider Nurse Practitioner Family | DX: R39.11 Hesitancy of micturition (principal) | CPT/HCPCS: 87086 ==

== ENCOUNTER 2022-09-09 06:36 | Emergency (ER) | payer MEDICAID, SELFPAY ==
[2022-09-09 06:42] VITALS: BP 118/58; PULSE 77; RESP 18; TEMP 36.8; O2SAT 100
--- NOTE | 2022-09-09 06:45 | DI.US_ITS ---
Exam(s) US SCROTUM EXAM: US SCROTUM CLINICAL HISTORY: right test pain, r/o torsion/mass TECHNIQUE: Ultrasound of the testes performed using grayscale, color, and Doppler imaging. COMPARISON: No exams were available for comparison FINDINGS: RIGHT HEMISCROTUM: The right testicle exhibits normal size and echo architecture with no evidence of intratesticular mas s. Vascular flow was demonstrated within the right testicle, including arterial waveforms. The epididymis appears unremarkable. There are no epididymal head cysts. Small hydrocele. Small varicocele. LEFT HEMISCROTUM: The left testicle exhibits normal size and echo architecture with no evidence of intratesticular mass . Vascular flow is demonstrated within the left testicle, including arterial waveforms. There is a small epididymal head cyst measuring 4 x 3 millimeters. Small varicocele. No hydrocele. IMPRESSION: 1. No evidence of testicular mass nor testicular torsion. 2. Small right hydrocele. 3. Small bilateral varicoceles. Images reveal what is probably a small right inguinal hernia. However, this is less evident on the C T scan performed today. DATA REPOSITORY:
--- NOTE | 2022-09-09 06:45 | DI.CT_ITS ---
Exam(s) CT ABDOMEN PELVIS W EXAM: CT ABDOMEN PELVIS W CLINICAL HISTORY: right groin pain, r/o stone,hernia, eval testes. TECHNIQUE: Imaging Protocol: Axial computed tomography images with coronal and sagittal reformatted images were created and reviewed CONTRAST MATERIAL: Intravenous: Omnipaque 100cc Oral: None COMPARISON: CT CT ABDOMEN PELVIS W from 11/26/2020 FINDINGS: VISUALIZED LUNG BASES: No nodules nor pleural effusions evident. Mild increased markings left lung b ase posterior basal segment left lower lobe. ABDOMEN: There is no ascites. LIVER: There are no focal hepatic lesions evident. Mildly dilated intrahepatic ducts. GALLBLADDER/BILIARY: No obvious gallbladder pathology. CBD is not dilated. PANCREAS: There are small calcifications in the uncinate process of the pancreatic head. No obvious distinct mass at this level. Pancreatic duct is not dilated. The remainder of the pancreas appears unremarkable. SPLEEN: Spleen size again noted to be upper normal. Splenic and portal veins are patent. ADRENALS: There are no significant adrenal masses. KIDNEYS:No cysts evident. No solid renal masses. There is a solitary small calculus in the inferior pole region of the left kidney measuring 2-3 millimeters. No calculi seen in the nondilated ureters. . ABDOMINAL AORTA: Abdominal aorta is not enlarged. LYMPH NODES:There is no retroperitoneal nor paraaortic adenopathy. ABDOMINAL WALL: No evidence of anterior abdominal hernia. GI: Fluid-filled upper normal diameter small bowel loops. No true bowel obstruction. PELVIS: GI: No evidence of appendicitis.No evidence of sigmoid diverticulitis. LYMPH NODES: There is no intrapelvic nor inguinal adenopathy. REPRODUCTIVE: Prostate size upper normal. There is noted a subcutaneous calcification in the dorsal aspect of the base of the penis. This measures 8 x 5 x12 millimeters. URINARY BLADDER: No calculi nor obvious masses evident OSSEOUS: No significant osseous lesions. No fractures. IMPRESSION: 1. No obvious acute findings. 2. Mild prominence of intrahepatic ducts noted. The CBD is not dilated. No obvious gallbladder path ology. Correlation with appropriate blood work recommended. 3. Small calcifications are again noted in the pancreatic head-uncinate process. No evidence of panc reatitis nor obvious pancreatic mass. Pancreatic duct is not dilated. 4. There is a small 2 millimeter nonobstructive solitary calculus in the left kidney. 5. There is a subcutaneous density in the dorsal aspect of the partially visualized penis, this dens ity measuring 8 x 5 x 12 millimeters. Of questionable significance. There is no abscess at this lev el. Correlation with clinical exam recommended. Report called by myself to ER physician. RADIATION DOSE DELIVERED: 571.66mGy.cm Total DLP DATA REPOSITORY: All CT scans at this facility are submitted to the National Radiology Data Registry (NRDR) Dose Index Registry (DIR) with the [employer] ([employer]). RADIATION OPTIMIZATION: All CT scans at this facility use at least one of these dose optimization te chniques: automated exposure control; mA and/or kV adjustment per patient size (includes targeted exa ms where dose is matched to clinical indication); or iterative reconstruction.
[2022-09-09 06:49] LABS: Bilirubin Negative (Negative); Blood Negative (Negative); Clarity Clear (Clear); Glucose Negative (Negative); Ketones Negative (Negative); Leukocyte Esterase Negative (Negative); Nitrite Negative (Negative); Specific Gravity 1.025 (1.005-1.025); Urobilinogen 0.2 EU/dL (Up TO 0.2)
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
[2022-09-09] MEDS: Ketorolac 15 MG/ML VIAL IVP (08:01)
[2022-09-09] MEDS: Normal Saline 1,000 ML 1000 ML IV (08:01)
[2022-09-09] MEDS: ACETAMINOPHEN 1,000 MG/100 ML BTL 400 MG IVPB (08:01)
[2022-09-09 08:10] LABS: Abs Immature Grans 0.01 10^3/uL (0.0-0.06); Absolute Basophil Count 0.04 10^3/uL (0.0-0.2); Absolute Eosinophil Count 0.09 10^3/uL (0.0-0.7); Absolute Lymphocyte Count 1.14 10^3/uL (1.2-3.4); Absolute Monocyte Count 0.42 10^3/uL (0.1-0.8); Absolute Neutrophil Count 3.02 10^3/uL (1.2-6.7); Basophils % 0.8; Eosinophils % 1.9; HCT 38.8 % (40.0-50.0); Immature Grans % 0.2; Lymphocytes % 24.2; MCH 28.8 pg (27.0-33.0); MCHC 33.5 % (32.0-36.0); MCV 86 fL (80-95); MPV 9.4 fL (8.0-11.0); Monocytes % 8.9; Platelet Count 235 10^3/uL (130-400); RBC 4.51 10^6/uL (4.36-5.78); RDW 12.2 % (11.8-14.1); RDW-SD 38.5 fL; WBC 4.72 10^3/uL (4.4-10.8)
[2022-09-09] MEDS: Normal Saline Flush 10 ML SYR IVP (08:18)
[2022-09-09] MEDS: Omnipaque 350 MG/ML 500 ML BTL-Imaging package IJ (08:18)
[2022-09-09 08:24] LABS: ALT 39 U/L (16-63); AST 38 U/L (15-37); Albumin 3.5 g/dL (3.4-5.0); Alkaline Phosphatase 78 U/L (46-116); BUN 12 mg/dL (7-18); Bilirubin, Total 0.2 mg/dL (0.2-1.0); CREATININE 0.9 mg/dL (0.70-1.30); Chloride 104 mmol/L (98-107); Estimated GFR 102.76 (mL/min/1.73m2); Glucose 103 mg/dL (74-106); Potassium 3.5 mmol/L (3.5-5.1); Sodium 143 mmol/L (136-145); Total Protein 7.5 g/dL (6.4-8.2)
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
--- NOTE | 2022-09-09 09:50 | NUR.NOTE ---
Nursing Note: PT info faxed to general surgery for follow up within the next two weeks for R groin pain. Diann, ED
[2022-09-09 10:02] VITALS: BP 126/80; PULSE 70; RESP 18; TEMP 36.8; O2SAT 98
[2022-09-10 15:06] LABS: Chlamydia Result Negative (Negative); GC Result Negative (Negative)
== END 2022-09-09 10:02 | disposition home or self-care (01) ==
PROVIDERS: Student in an Organized Health Care Education/Training Program; Emergency Provider Physician Assistant; PCP Nurse Practitioner Family
DX: K40.90 Unilateral inguinal hernia, without obstruction or gangrene, not specified as recurrent (principal); S39.011A Strain of muscle, fascia and tendon of abdomen, initial encounter; N50.811 Right testicular pain; X58.XXXA Exposure to other specified factors, initial encounter; Y93.39 Activity, other involving climbing, rappelling and jumping off
CPT/HCPCS: 36415; 80053; 87491; 87591; 96361; 96374; 96375; 99285; 74177; 76870; 81003; 85025; 99284; J0131; J1885

== ENCOUNTER 2022-10-27 11:51 | Day surgery (SDC) | payer MEDICAID, SELFPAY ==
--- NOTE | 2022-10-27 08:07 | W.ANESPRE ---
General Info Date of Service Date Performed: 10/27/22 Height: 5 ft 5 in Weight: 58.7 kg Body Mass Index (BMI): 21.5 Surgical Procedure: Operation Date: 10/27/22 13:50 Proposed Procedure Side Surgeon delaney Elkins MD Meds Allergies and Home Medications Allergies Allergy/AdvReac Type Severity Reaction Status Date / Time mushroom Allergy Unknown Verified 10/27/22 12:54 sulfamethoxazole Allergy Hives Unverified 10/27/22 12:54 [From Bactrim] trimethoprim [From Bactrim] Allergy Hives Unverified 10/27/22 12:54 Home Medication Medication Instructions Recorded omeprazole 20 mg tablet,delayed 20 mg PO DAILY 02/21/20 release clonidine HCl 0.2 mg tablet 0.2 mg PO TID 07/29/21 pramipexole 1 mg tablet 1 mg PO DAILY 09/17/21 buprenorphine 8 mg-naloxone 2 mg 2 film sublingual DAILY 07/04/22 sublingual film (Suboxone) dexmethylphenidate 15 mg 15 mg PO DAILY 07/04/22 capsule,extended release [id number] (Focalin XR) escitalopram oxalate 20 mg tablet 40 mg PO DAILY 07/04/22 (Lexapro) gabapentin 100 mg capsule 100 mg PO BID 07/04/22 lurasidone 40 mg tablet (Latuda) 40 mg PO DAILY 07/04/22 zolpidem 5 mg tablet (Ambien) 5 mg PO QHS PRN 07/04/22 albuterol sulfate 90 mcg/actuation 2 puff inhalation Q6H PRN 08/24/22 aerosol inhaler (ProAir HFA) shortness of breath or wheezing #8.5 grams prazosin 1 mg capsule 1 mg PO QHS 10/05/22 glecaprevir 100 mg-pibrentasvir 40 3 tab PO DAILY 10/10/22 mg tablet (Mavyret) Current Visit Medications: Current Medications Generic Name Dose Route Start Last Admin Trade Name Freq PRN Reason Stop Dose Admin Ringer's Solution 1,000 mls @ 80 mls/hr 10/27/22 06:00 IV 11/25/22 23:59 INFUSION CJ IV Miscellaneous Supplies 1 each 10/27/22 06:00 Iv Access IV 11/25/22 23:59 DIRECTED CJ Sodium Chloride 0 ml 10/27/22 06:00 Normal Saline Flush 10 Ml Syr IV 11/25/22 23:59 PRN PRN Sodium Chloride 0 ml 10/27/22 06:00 Normal Saline 10 Ml Vial IJ 11/25/22 23:59 DIRECTED PRN Sterile Water 0 ml 10/27/22 06:00 Water,Injection,Sterile 10 Ml Vial IJ 11/25/22 23:59 DIRECTED PRN PFSH Active Problems Active Problems: Problem Status Onset Code Screening for colon cancer Z12.11 Unintentional weight loss R63.4 Shortness of breath R06.02 Hepatitis K75.9 Medical History Medical History Bipolar disorder Chronic low back pain GERD (gastroesophageal reflux disease) History of prediabetes Narcotic abuse in remission PTSD (post-traumatic stress disorder) Rash RLS (restless legs syndrome) Surgical History Surgical History History of appendectomy Tobacco Smoking/Tobacco Use Status: Never Alcohol Alcohol Intake: current Alcohol intake frequency: holidays/special occasions only Alcohol type: beer Substance Use Substance use type: other Details: suboxone Vital Signs and Lab Results Lab Results Blood Type / Crossmatch: No Data to Display Complete Blood Count: No Data to Display Complete Metabolic Panel: No Data to Display Liver Function Panel: No Data to Display Coagulation Panel: No Data to Display Cardiac Panel: No Data to Display Arterial Blood Gas: No Data to Display Venous Blood Gas: No Data to Display Pancreas Panel: No Data to Display Thyroid Panel: No Data to Display Infectious Disease: No Data to Display Blood Cultures: No Data to Display Toxicology Panel: No Data to Display Imaging and Studies Imaging and Studies Study information below may be from another EMR and interpreted by another provider. Please see original notes in EMR for more complete details. EKG Summary: Conclusion Sinus rhythm...normal P axis, V-rate 60- 99 Normal Electrocardiogram Anesthesia Assessment and Plan Anesthesia History Personal History: No History of Anesthesia Complications Family History: Family History Unknown Exercise Tolerance Exercise Tolerance: Metabolic Equivalents>4 Pertinent Negatives Pertinent Negatives: No Symptoms of GERD, No Major Cardiovascular Symptoms or Complaints, No Major Pulmonary Symptoms or Complaints and No History of CVA/TIA Cardiac & Pulmonary Exam Cardiac Exam: Normal S1/S2 Heart Sounds Pulmonary Exam: Clear Bilateral Breath Sounds Implantable Cardiac Device Does patient have a Pacemaker or an ICD?: No Airway Exam Known Difficult Airway: No Mallampati Class: 2 Mouth Opening: Normal (> 3cm) Thyromental Distance: Greater than 3 cm Neck Range of Motion: Full ROM Neck Circumference: Normal Teeth Condition: Normal Dentition ASA Classification ASA Score: ASA 2 Emergency Case?: No NPO Status NPO Status: NPO Clears >2 hours, Solids >8 hours Anesthesia Plan Resuscitation Status: Full Code Anesthesia Technique: General Anesthesia Airway Planned: Natural Airway Monitors Used: Standard Monitors
--- NOTE | 2022-10-27 12:42 | W.PM.DSUDISC ---
Date of service: 10/27/22 Time of Service: 15:37 Discharge Plan Disposition Patient Disposition: Home Discharge Details Reason For Visit: Routine health maintenance screening colonoscopy Attending Provider: Harris Elkins Primary Care Provider: Sharmaine Rodriguez Home Meds and New Rx's Prescriptions: Continued prazosin 1 mg capsule 1 mg PO QHS pramipexole 1 mg tablet 1 mg PO DAILY zolpidem [Ambien] 5 mg tablet 5 mg PO QHS PRN dexmethylphenidate [Focalin XR] 15 mg capsule,ER biphasic 50-50 15 mg PO DAILY buprenorphine-naloxone [Suboxone] 8-2 mg film 2 film sublingual DAILY Rx Instructions: place 1 strip/tab under (each) side of tongue escitalopram oxalate [Lexapro] 20 mg tablet 40 mg PO DAILY Latuda 40 mg tablet 40 mg PO DAILY Rx Instructions: must administer with food (at least 350 calories) gabapentin 100 mg capsule 100 mg PO BID Mavyret 100-40 mg tablet 3 tab PO DAILY Rx Instructions: must administer with a meal/food omeprazole 20 mg Tablet,Delayed Release (Dr/Ec) 20 mg PO DAILY albuterol sulfate [ProAir HFA] 90 mcg/actuation HFA aerosol inhaler 2 puff inhalation Q6H PRN (Reason: shortness of breath or wheezing) Qty: 8.5 0RF clonidine HCl 0.2 mg tablet 0.2 mg PO TID Discontinued polyethylene glycol 3350 17 gram/dose powder 238 g PO ONCE Qty: 238 0RF Rx Instructions: take per colonoscopy instructions bisacodyl [Dulcolax (bisacodyl)] 5 mg tablet,delayed release (DR/EC) 5 mg PO ONCE Qty: 4 0RF Rx Instructions: take per colonoscopy instructions Discharge Instructions Additional Instructions: 1. If tolerated, consume a soft, low fiber diet for 1-2 days. [address] not drive, drink alcohol, operate machinery, make critical decisions, or do activities that require coordination or balance for 24 hours. 3. Because air was put into your colon during the procedure, expelling air from your rectum (passing gas or farting) is normal. 4. You may not have a bowel movement for 1-3 days because of the colonoscopy prep. This is normal. 5. Go directly to the emergency room if you notice any of the following: Develop chills (warm to touch), or if you have a thermometer and your temperature is above 101 Difficulty breathing or difficultly swallowing Persistent vomiting Severe abdominal pain, other than gas cramps Severe chest pain Black, tarry stools Any bleeding ? exceeding one tablespoon 6. Call your physician if the site where your intravenous was started becomes red, swollen, painful, and warm to touch. 7. Your physician has reviewed your pre-procedure medications. Please continue to take those medications as previously ordered. You will be given specific information/education regarding any changes to your medications before leaving. 8. Schedule an appointment in the office for a new prep and another planned colonoscopy Activity:: Activity as Tolerated Diet:: As Tolerated Discharge Orders Discharge Orders: Discharge Order (Routine); Ordered 10/27/22 Ordered By: Harris Elkins
--- NOTE | 2022-10-27 12:45 | W.PM.OP ---
Date of service: 10/27/22 Time of Service: 12:45 Operative Note Operative Note DATE OF PROCEDURE: 10/27/22 PRE-OP DIAGNOSIS: Routine health maintenance screening colonoscopy POST-OP DIAGNOSIS: same PROCEDURE: Incomplete or aborted colonoscopy SURGEON: Harris Elkins Refer to Anesthesia Record ESTIMATED BLOOD LOSS: 0 PATHOLOGY: none sent COMPLICATIONS: Other (Inadequate prep) Patient was transported to: same day Patient's condition: stable Indications: Rik is a 52-year-old male who needs a screening colonoscopy Procedure Description: After the induction of monitored anesthetic care, and with the patient in left lateral decubitus position, I began by performing an external anorectal exam.? Perineum and skin were normal, as was the anal verge.? There was no evidence of external hemorrhoids.? Next, I performed a digital rectal exam.? I did not appreciate any abnormal findings.? Next, I advanced a colonoscope into the rectal vault.? I performed retroflexion.? I this was normal.? Using insufflation, I then advanced the colonoscope beyond the rectal folds and into the sigmoid colon before advancing towards the cecum.? Within the rectum, as there was retained blue stained fluid. Most of this could be irrigated clear. The quality of the prep was inadequate.? I was able to safely advance the scope into what I believe was the cecum. At 3 different points, there was a large volume of retained slightly gelatinous greenish-blue material. Although I was able to safely traverse these areas, I was not able to clear the material. Especially in the cecum. We attempted repositioning, and multiple rounds of irrigation and evacuation, however, the material continued to clog the colonoscope. Quality of the prep was insufficient for a complete colonoscopy. Therefore, I withdrew the camera.
[2022-10-27 12:59] VITALS: BP 116/73; PULSE 83; RESP 16; TEMP 36.5; O2SAT 95
[2022-10-27] MEDS: Lactated Ringers 1,000 ML 80 ML IV (13:15)
[2022-10-27 14:30] VITALS: BP 103/72; PULSE 75; RESP 16; TEMP 36.1; O2SAT 99
[2022-10-27 14:39] VITALS: BMI 21.5
[2022-10-27 15:00] VITALS: BP 118/68; PULSE 72; RESP 16; TEMP 36.3; O2SAT 100
--- NOTE | 2022-10-28 12:34 | W.ANESPOSTOP ---
Postoperative Evaluation Date, Time and Location Date Performed: 10/28/22 Time Performed: 12:34 Patient Location: Day Surgery Unit Vital Signs Most Recent Imported Vital Signs: Most Recent Vital Signs Temp Pulse Resp BP Pulse Ox 36.3 C L 72 16 118/68 100 10/27/22 15:00 10/27/22 15:00 10/27/22 15:00 10/27/22 15:00 10/27/22 15:00 Pain Score Most Recent Pain Score: Most Recent Pain Score Pain Level 0 10/27/22 15:00 Assessment Mental Status: Awake (Alert & Oriented to Patient Baseline) Airway and Respiratory Function: Patent airway with normal (patient baseline) respiratory exam Cardiovascular Function: Hemodynamically Stable Hydration Status: Adequately Hydrated Nausea & Vomiting: No Nausea or Vomiting Pain: Pt. Denies Any Pain Peripheral Nerve Block: Patient did not receive a nerve block Postoperative Comments:: Patient was seen yesterday and was doing well at the time.
== END 2022-10-27 15:25 | disposition home or self-care (01) ==
PROVIDERS: PCP Nurse Practitioner Family; Visit Provider Surgery
PROC: 0DJD8ZZ Inspection of Lower Intestinal Tract, Via Natural or Artificial Opening Endoscopic (ICD-10-PCS; CPT 45378; principal; 2022-10-27 13:45)
DX: Z12.11 Encounter for screening for malignant neoplasm of colon (principal); Z53.8 Procedure and treatment not carried out for other reasons
CPT/HCPCS: 45330

== ENCOUNTER 2022-11-07 16:23 | Outpatient (REF) | payer MEDICAID, SELFPAY ==
[2022-11-07 15:39] LABS: HCT 39.4 % (40.0-50.0); HGB 13.7 g/dL (13.5-17.5); MCH 29.3 pg (27.0-33.0); MCHC 34.8 % (32.0-36.0); MCV 84 fL (80-95); MPV 10.2 fL (8.0-11.0); Platelet Count 210 10^3/uL (130-400); RBC 4.67 10^6/uL (4.36-5.78); RDW 13.1 % (11.8-14.1); RDW-SD 40.6 fL; WBC 4.57 10^3/uL (4.4-10.8)
[2022-11-07 16:05] LABS: ALT 29 U/L (16-63); AST 41 U/L (15-37); Albumin 4.1 g/dL (3.4-5.0); Alkaline Phosphatase 82 U/L (46-116); Anion Gap 6.9 mmol/L (3-11); BUN 15 mg/dL (7-18); Bilirubin, Total 0.5 mg/dL (0.2-1.0); CO2 30.1 mmol/L (21.0-32.0); CREATININE 0.9 mg/dL (0.70-1.30); Chloride 102 mmol/L (98-107); Estimated GFR 102.76 (mL/min/1.73m2); Glucose 140 mg/dL (74-106); Potassium 3.6 mmol/L (3.5-5.1); Sodium 139 mmol/L (136-145); Total Protein 7.9 g/dL (6.4-8.2)
[2022-11-08 09:40] LABS: Hepatitis C Ab w Rflx HCV PCR Reactive (Negative)
[2022-11-09 13:51] LABS: HCV RNA Detection Quantitative 22 IU/mL (Undetected); HCV RNA Qualitative Detected (Undetected)
== END 2022-11-07 16:24 | disposition home or self-care (01) ==
LOC: NCHCN 16:23
PROVIDERS: PCP Nurse Practitioner Family; Visit Provider Family Medicine
DX: B19.20 Unspecified viral hepatitis C without hepatic coma (principal)
CPT/HCPCS: 80053; 85027; 86803; 87522

== ENCOUNTER 2022-11-17 09:12 | Day surgery (SDC) | payer MEDICAID, SELFPAY ==
--- NOTE | 2022-11-16 18:12 | ANES.PREOP_ITS ---
General Info Date of Service Date Performed: 11/17/22 Height: 5 ft 5 in Weight: 58 kg Body Mass Index (BMI): 21.2 Surgical Procedure: Operation Date: 11/17/22 11:05 Proposed Procedure Side Surgeon delaney Elkins MD Meds Allergies and Home Medications Allergies Allergy/AdvReac Type Severity Reaction Status Date / Time mushroom Allergy Unknown Verified 11/17/22 09:56 sulfamethoxazole Allergy Hives Unverified 11/17/22 09:56 [From Bactrim] trimethoprim [From Bactrim] Allergy Hives Unverified 11/17/22 09:56 Home Medication Medication Instructions Recorded omeprazole 20 mg tablet,delayed 20 mg PO DAILY 02/21/20 release clonidine HCl 0.2 mg tablet 0.2 mg PO TID 07/29/21 pramipexole 1 mg tablet 1 mg PO DAILY 09/17/21 buprenorphine 8 mg-naloxone 2 mg 2 film sublingual DAILY 07/04/22 sublingual film (Suboxone) dexmethylphenidate 15 mg 15 mg PO DAILY 07/04/22 capsule,extended release [id number] (Focalin XR) escitalopram oxalate 20 mg tablet 40 mg PO DAILY 07/04/22 (Lexapro) gabapentin 100 mg capsule 100 mg PO BID 07/04/22 lurasidone 40 mg tablet (Latuda) 40 mg PO DAILY 07/04/22 zolpidem 5 mg tablet (Ambien) 5 mg PO QHS PRN 07/04/22 albuterol sulfate 90 mcg/actuation 2 puff inhalation Q6H PRN 08/24/22 aerosol inhaler (ProAir HFA) shortness of breath or wheezing #8.5 grams prazosin 1 mg capsule 1 mg PO QHS 10/05/22 glecaprevir 100 mg-pibrentasvir 40 3 tab PO DAILY 10/10/22 mg tablet (Mavyret) magnesium citrate 150 ml PO ONCE #296 mL 11/07/22 Current Visit Medications: Current Medications Generic Name Dose Route Start Last Admin Trade Name Freq PRN Reason Stop Dose Admin Ringer's Solution 1,000 mls @ 80 mls/hr 11/17/22 06:00 IV 12/16/22 23:59 INFUSION CJ IV Miscellaneous Supplies 1 each 11/17/22 06:00 Iv Access IV 12/16/22 23:59 DIRECTED CJ Sodium Chloride 0 ml 11/17/22 06:00 Normal Saline Flush 10 Ml Syr IV 12/16/22 23:59 PRN PRN Sodium Chloride 0 ml 11/17/22 06:00 Normal Saline 10 Ml Vial IJ 12/16/22 23:59 DIRECTED PRN Sterile Water 0 ml 11/17/22 06:00 Water,Injection,Sterile 10 Ml Vial IJ 12/16/22 23:59 DIRECTED PRN PFSH Active Problems Active Problems: Problem Status Onset Code Screening for colon cancer Z12.11 Unintentional weight loss R63.4 Shortness of breath R06.02 Hepatitis K75.9 Medical History Medical History Bipolar disorder Chronic low back pain GERD (gastroesophageal reflux disease) History of prediabetes Narcotic abuse in remission PTSD (post-traumatic stress disorder) Rash RLS (restless legs syndrome) Surgical History Surgical History History of appendectomy Tobacco Smoking/Tobacco Use Status: Never Alcohol Alcohol Intake: current Alcohol intake frequency: holidays/special occasions only Alcohol type: beer Substance Use Substance use type: other Details: suboxone Vital Signs and Lab Results Vital Signs Most Recent Vital Signs in EMR: Temp Pulse Resp BP Pulse Ox 36.5 C 63 16 120/72 99 11/17/22 09:40 11/17/22 09:40 11/17/22 09:40 11/17/22 09:40 11/17/22 09:40 Lab Results Blood Type / Crossmatch: No Data to Display Complete Blood Count: White Blood Count 4.57 10^3/uL (4.4-10.8) 11/07/22 13:20 Red Blood Count 4.67 10^6/uL (4.36-5.78) 11/07/22 13:20 Hemoglobin 13.7 g/dL (13.5-17.5) 11/07/22 13:20 Hematocrit 39.4 % (40.0-50.0) L 11/07/22 13:20 Platelet Count 210 10^3/uL (130-400) 11/07/22 13:20 Complete Metabolic Panel: Sodium 139 mmol/L (136-145) 11/07/22 13:20 Potassium 3.6 mmol/L (3.5-5.1) 11/07/22 13:20 Chloride 102 mmol/L (98-107) 11/07/22 13:20 Carbon Dioxide 30.1 mmol/L (21.0-32.0) 11/07/22 13:20 BUN 15 mg/dL (7-18) 11/07/22 13:20 Creatinine 0.9 mg/dL (0.70-1.30) 11/07/22 13:20 Est GFR (CKD-EPI 2020) 102.76 (mL/min/1.73m2) 11/07/22 13:20 Calcium 9.0 mg/dL (8.5-10.1) 11/07/22 13:20 Albumin 4.1 g/dL (3.4-5.0) 11/07/22 13:20 Glucose 140 mg/dL (74-106) H 11/07/22 13:20 Liver Function Panel: Alanine Aminotransferase (ALT/SGPT) 29 U/L (16-63) 11/07/22 13: 20 Aspartate Amino Transf (AST/SGOT) 41 U/L (15-37) H 11/07/22 13: 20 Coagulation Panel: No Data to Display Cardiac Panel: No Data to Display Arterial Blood Gas: No Data to Display Venous Blood Gas: No Data to Display Pancreas Panel: No Data to Display Thyroid Panel: No Data to Display Infectious Disease: Hepatitis C Antibody Reactive (Negative) A 11/07/22 13:20 Hepatitis C RNA Quantitative 22 IU/mL (Undetected) H 11/07/22 1 3:20 Blood Cultures: No Data to Display Toxicology Panel: No Data to Display Imaging and Studies Imaging and Studies Study information below may be from another EMR and interpreted by another provider. Please see original notes in EMR for more complete details. EKG Summary: 09/10 Sinus rhythm...normal P axis, V-rate 60- 99 Normal Electrocardiogram Anesthesia Assessment and Plan Anesthesia History Personal History: No History of Anesthesia Complications Family History: Family History Unknown Exercise Tolerance Exercise Tolerance: Metabolic Equivalents>4 Cardiac & Pulmonary Exam Cardiac Exam: Normal S1/S2 Heart Sounds Pulmonary Exam: Clear Bilateral Breath Sounds Implantable Cardiac Device Does patient have a Pacemaker or an ICD?: No Airway Exam Known Difficult Airway: No Mallampati Class: 2 Mouth Opening: Normal (> 3cm) Thyromental Distance: Greater than 3 cm Neck Range of Motion: Full ROM Neck Circumference: Normal Teeth Condition: Normal Dentition ASA Classification ASA Score: ASA 2 Emergency Case?: No NPO Status NPO Status: NPO Clears >2 hours, Solids >8 hours Anesthesia Plan Resuscitation Status: Full Code Anesthesia Technique: General Anesthesia Airway Planned: Natural Airway Monitors Used: Standard Monitors Preoperative Comments:: 52 yo male for colo. Last colo with incomplete prep. Sig PMHx: bipolar (clonidine, escitaloproam, lursidone), hepatitis, GERD (omeprazole), LBP, pre DM, PTSD, RLS, never smoker, suboxone, RAD (albuterol), Previous Anes: - colo with prop/lido, no issues.
--- NOTE | 2022-11-16 19:38 | W.PM.DSUDISC ---
Date of service: 11/17/22 Time of Service: 11:46 Discharge Plan Disposition Patient Disposition: Home Condition: Good Discharge Details Reason For Visit: Screening colonoscopy Attending Provider: Harris Elkins Primary Care Provider: Sharmaine Rodriguez Home Meds and New Rx's Prescriptions: Continued prazosin 1 mg capsule 1 mg PO QHS magnesium citrate Solution 150 ml PO ONCE Qty: 296 0RF Rx Instructions: as a single dose pramipexole 1 mg tablet 1 mg PO DAILY zolpidem [Ambien] 5 mg tablet 5 mg PO QHS PRN dexmethylphenidate [Focalin XR] 15 mg capsule,ER biphasic 50-50 15 mg PO DAILY buprenorphine-naloxone [Suboxone] 8-2 mg film 2 film sublingual DAILY Rx Instructions: place 1 strip/tab under (each) side of tongue escitalopram oxalate [Lexapro] 20 mg tablet 40 mg PO DAILY Latuda 40 mg tablet 40 mg PO DAILY Rx Instructions: must administer with food (at least 350 calories) gabapentin 100 mg capsule 100 mg PO BID Mavyret 100-40 mg tablet 3 tab PO DAILY Rx Instructions: must administer with a meal/food omeprazole 20 mg Tablet,Delayed Release (Dr/Ec) 20 mg PO DAILY albuterol sulfate [ProAir HFA] 90 mcg/actuation HFA aerosol inhaler 2 puff inhalation Q6H PRN (Reason: shortness of breath or wheezing) Qty: 8.5 0RF clonidine HCl 0.2 mg tablet 0.2 mg PO TID Discontinued bisacodyl [Dulcolax (bisacodyl)] 5 mg tablet,delayed release (DR/EC) 5 mg PO ONCE Qty: 4 0RF Rx Instructions: Take according to provider's instructions for colonoscopy prep. polyethylene glycol 3350 17 gram/dose powder 17 g PO ONCE Qty: 238 0RF Rx Instructions: To be taken as directed by prescriber's office for colonoscopy prep. peg 3350-electrolytes [Golytely] 236-22.74-6.74 -5.86 gram recon soln 240 ml PO Q10M Qty: 4000 0RF Rx Instructions: until fecal effluent is clear Discharge Instructions Additional Instructions: 1. If tolerated, consume a soft, low fiber diet for 1-2 days. [address] not drive, drink alcohol, operate machinery, make critical decisions, or do activities that require coordination or balance for 24 hours. 3. Because air was put into your colon during the procedure, expelling air from your rectum (passing gas or farting) is normal. 4. You may not have a bowel movement for 1-3 days because of the colonoscopy prep. This is normal. 5. Go directly to the emergency room if you notice any of the following: Develop chills (warm to touch), or if you have a thermometer and your temperature is above 101 Difficulty breathing or difficultly swallowing Persistent vomiting Severe abdominal pain, other than gas cramps Severe chest pain Black, tarry stools Any bleeding ? exceeding one tablespoon 6. Call your physician if the site where your intravenous was started becomes red, swollen, painful, and warm to touch. 7. Your physician has reviewed your pre-procedure medications. Please continue to take those medications as previously ordered. You will be given specific information/education regarding any changes to your medications before leaving. Activity:: Activity as Tolerated Diet:: As Tolerated Discharge Orders Discharge Orders: Discharge Order (Routine); Ordered 11/16/22 Ordered By: Harris Elkins DS: Diagnosis Discharge Diagnosis (1) Screening for colon cancer: Status: Acute Asessment and Plan: The colonoscopy was normal. You will need another screening colonoscopy in 10 years to reduce the risk of colon cancers You should follow-up in my office at your convenience to talk about hernia repair.
--- NOTE | 2022-11-16 19:40 | W.COLOREPORT ---
Date of service: 11/17/22 Time of Service: 11:46 Colonoscopy Report Date of procedure: 11/17/22 Pre-op diagnosis general: Screening colonoscopy Post-op diagnosis procedure note: same Procedure: Screening colonoscopy Surgeon: Harris Elkins Anesthesia Type: General:No Airway Estimated blood loss (mL): 0 Pathology: none sent Complications: None Disposition: same day Indications: Quincy is a 52-year-old male who presents for his first screening colonoscopy. We attempted the study several weeks ago, but his prep was inadequate, and I could not completely visualize the cecum. He is here today for another attempt. Prep: Williams Procedure Start Time: 11:08 Procedure End Time: 11:25 Retraction Time: 12 Findings: Normal colonoscopy Procedure Description: After the induction of monitored anesthetic care, and with the patient in left lateral decubitus position, I began by performing an external anorectal exam.? Perineum and skin were normal, as was the anal verge.? There was no evidence of external hemorrhoids.? Next, I performed a digital rectal exam.? I did not appreciate any abnormal findings.? Next, I advanced a colonoscope into the rectal vault.? I performed retroflexion.? ? Using insufflation, I then advanced the colonoscope beyond the rectal folds and into the sigmoid colon before advancing towards the cecum.? The quality of the prep was excellent.? The scope was noted to be in the cecum by identification of the ileocecal valve and appendiceal orifice.? I then began withdrawing the colonoscope using repeated irrigation as necessary for full evaluation of the colonic mucosa. ?Once the scope was withdrawn to the level of the rectum, great care was taken to examine portions of the rectal folds.? Finally, the scope was withdrawn and the patient was brought to the same-day surgery recovery unit as the anesthetic wore off. ?The findings and instructions were shared with the patient prior to discharge.
[2022-11-17 09:40] VITALS: BP 120/72; PULSE 63; RESP 16; TEMP 36.5; O2SAT 99
[2022-11-17] MEDS: Lactated Ringers 1,000 ML 80 ML IV (10:14)
[2022-11-17 10:55] VITALS: BMI 21.2
[2022-11-17 11:32] VITALS: BP 115/92; PULSE 73; RESP 16; TEMP 36.1; O2SAT 100
--- NOTE | 2022-11-17 11:50 | W.ANESPOSTOP ---
Postoperative Evaluation Date, Time and Location Date Performed: 11/17/22 Time Performed: 11:50 Patient Location: Day Surgery Unit Vital Signs Most Recent Imported Vital Signs: Most Recent Vital Signs Temp Pulse Resp BP Pulse Ox 36.1 C L 73 16 115/92 H 100 11/17/22 11:32 11/17/22 11:32 11/17/22 11:32 11/17/22 11:32 11/17/22 11:32 Pain Score Most Recent Pain Score: Most Recent Pain Score Pain Level 0 11/17/22 11:32 Assessment Mental Status: Awake (Alert & Oriented to Patient Baseline) Airway and Respiratory Function: Patent airway with normal (patient baseline) respiratory exam Cardiovascular Function: Hemodynamically Stable Hydration Status: Adequately Hydrated Nausea & Vomiting: No Nausea or Vomiting Pain: Pt. Denies Any Pain Peripheral Nerve Block: Patient did not receive a nerve block
[2022-11-17 12:05] VITALS: BP 126/90; PULSE 70; RESP 16; TEMP 36.4; O2SAT 97
== END 2022-11-17 12:30 | disposition home or self-care (01) ==
PROVIDERS: PCP Nurse Practitioner Family; Visit Provider Surgery
PROC: 0DJD8ZZ Inspection of Lower Intestinal Tract, Via Natural or Artificial Opening Endoscopic (ICD-10-PCS; CPT 45378; principal; 2022-11-17 11:00)
DX: Z12.11 Encounter for screening for malignant neoplasm of colon (principal)
CPT/HCPCS: 45378

== ENCOUNTER 2022-11-24 15:42 | Outpatient (REF) | payer MEDICAID, SELFPAY ==
[2022-11-28 14:11] LABS: HCV RNA Qualitative Undetected (Undetected)
== END 2022-11-24 15:43 | disposition home or self-care (01) ==
LOC: NCHCN 15:42
PROVIDERS: PCP Nurse Practitioner Family; Visit Provider Family Medicine
DX: B19.20 Unspecified viral hepatitis C without hepatic coma (principal)
CPT/HCPCS: 87522

== ENCOUNTER 2022-12-06 08:48 | Day surgery (SDC) | payer MEDICAID, SELFPAY ==
[2022-12-06] VITALS (10 sets, daily range): BP systolic 104–144; BP diastolic 64–93; PULSE 54–78; RESP 12–17; TEMP 36.3–37.1; O2SAT 98–100; BMI 22.5
--- NOTE | 2022-12-06 07:20 | HPE_ITS ---
Assessment and Plan Assessment and plan (1) Inguinal hernia: Status: Acute Assessment and plan: We will proceed with right-sided inguinal herniorrhaphy today. We talked about the risks and benefits and nature of the operation, and anticipated recovery. He provided informed consent. History of Present Illness History of Present Illness Chief Complaint: Right groin pain Narrative: Quincy is a 52-year-old male who developed pain in the right groin several years ago while exercising. Over the past few months, he has noticed increasing episodes of pain, with higher levels of intensity. He denies any obstructive symptoms. He underwent an ultrasound that demonstrated a right-sided inguinal hernia. PFSH All Active Problems Screening for colon cancer (Acute) Unintentional weight loss (Acute) Shortness of breath (Acute) Hepatitis (Acute) Inguinal hernia (Acute) Medical History ADHD Bipolar disorder Chronic low back pain GERD (gastroesophageal reflux disease) Hepatitis C History of prediabetes Narcotic abuse in remission PTSD (post-traumatic stress disorder) Rash RLS (restless legs syndrome) Surgical History History of appendectomy History of colonoscopy (~11/17/22) Social History Smoking/Tobacco Use Status: Never Smoking risk assessment performed?: Yes Alcohol Intake: current Alcohol Intake frequency: a few times a month Alcohol type: beer Substance use type: other Details: daily marijuana use-smokes. last smoked marijuana 1 hour ago. suboxone Current gender identity: male Do you feel safe at home: Yes Do you feel safe in your relationship?: Yes Meds Allergies and Home Medications Allergies Allergy/AdvReac Type Severity Reaction Status Date / Time mushroom Allergy Unknown Verified 12/06/22 09:36 sulfamethoxazole Allergy Hives Unverified 12/06/22 09:36 [From Bactrim] trimethoprim [From Bactrim] Allergy Hives Unverified 12/06/22 09:36 Home Medications Medication Instructions Recorded Confirmed Type omeprazole 20 mg tablet,delayed 20 mg PO DAILY 02/21/20 12/06/22 History release clonidine HCl 0.2 mg tablet 0.2 mg PO TID 07/29/21 12/06/22 History buprenorphine 8 mg-naloxone 2 mg 2 film sublingual DAILY 07/04/22 12/06/22 History sublingual film (Suboxone) dexmethylphenidate 15 mg 40 mg PO DAILY 07/04/22 12/06/22 History capsule,extended release -46 (Focalin XR) escitalopram oxalate 20 mg tablet 40 mg PO DAILY 07/04/22 12/06/22 History (Lexapro) gabapentin 100 mg capsule 300 mg PO BID 07/04/22 12/06/22 History lurasidone 40 mg tablet (Latuda) 40 mg PO DAILY 07/04/22 12/06/22 History zolpidem 5 mg tablet (Ambien) 5 mg PO QHS PRN 07/04/22 12/06/22 History albuterol sulfate 90 mcg/actuation 2 puff inhalation Q6H PRN 08/24/22 12/06/22 Rx aerosol inhaler (ProAir HFA) shortness of breath or wheezing #8.5 grams prazosin 1 mg capsule 1 mg PO QHS 10/05/22 12/06/22 History glecaprevir 100 mg-pibrentasvir 40 3 tab PO DAILY 10/10/22 12/06/22 History mg tablet (Mavyret) budesonide-formoterol HFA 80 inhalation PRN 12/06/22 History mcg-4.5 mcg/actuation aerosol inhaler (Symbicort) tramadol 100 mg tablet 100 mg PO BID PRN pain #6 tabs 12/06/22 Rx Exam Const General: cooperative, healthy appearing and no acute distress [facility] Head: normal to inspection Eyes General: appearance normal, both eyes and all related structures Resp Effort & Inspection: normal respiratory effort Auscultation: clear to auscultation bilaterally Cardio Rate: regular rate Rhythm: regular rhythm Heart Sounds: S1 normal and S2 normal GI Palpation: soft, no guarding, hernia (Right-sided inguinal tenderness with Valsalva) and nontender Auscultation: normal bowel sounds
--- NOTE | 2022-12-06 07:25 | PDOC.DSDIS_ITS ---
Date of service: 12/06/22 Time of Service: 07:25 Discharge Plan Disposition Patient Disposition: Home Condition: Good Discharge Details Reason For Visit: Right-sided inguinal hernia Attending Provider: Harris Elkins Primary Care Provider: Sharmaine Rodriguez Home Meds and New Rx's Prescriptions: New tramadol 100 mg tablet 100 mg PO BID PRN (Reason: pain) Qty: 6 0RF Rx Instructions: Take 1 tablet by mouth up to every 12 hours as needed for severe pain. Do not drive while using this medication. Take great care using this medication as it is known to be addictive. Continued prazosin 1 mg capsule 1 mg PO QHS zolpidem [Ambien] 5 mg tablet 5 mg PO QHS PRN dexmethylphenidate [Focalin XR] 15 mg capsule,ER biphasic 50-50 40 mg PO DAILY buprenorphine-naloxone [Suboxone] 8-2 mg film 2 film sublingual DAILY Rx Instructions: place 1 strip/tab under (each) side of tongue escitalopram oxalate [Lexapro] 20 mg tablet 40 mg PO DAILY Latuda 40 mg tablet 40 mg PO DAILY Rx Instructions: must administer with food (at least 350 calories) gabapentin 100 mg capsule 300 mg PO BID Mavyret 100-40 mg tablet 3 tab PO DAILY Rx Instructions: must administer with a meal/food omeprazole 20 mg Tablet,Delayed Release (Dr/Ec) 20 mg PO DAILY albuterol sulfate [ProAir HFA] 90 mcg/actuation HFA aerosol inhaler 2 puff inhalation Q6H PRN (Reason: shortness of breath or wheezing) Qty: 8.5 0RF clonidine HCl 0.2 mg tablet 0.2 mg PO TID No Action budesonide-formoterol [Symbicort] 80-4.5 mcg/actuation Hfa Aerosol Inhaler INHALATION PRN Discharge Instructions Instructions: Inguinal Hernia (GEN) Additional Instructions: 1. Resume all of your medications. 2. Okay to use tylenol and ibuprofen over the counter as needed. Use tramadol as needed for severe pain 3. Heating pads and cold ice packs are fine to use for your discomfort. 4. Leave bandage in place for 24 hours, then remove. 5. Shower with warm soapy water. Pat dry. Use a bandaid if needed to protect your clothing. 6. No soaking or tub baths until I see you in the office. 7. No heavy lifting until I see you in the office. 8.Call the office (or go directly to the emergency room after hours) if you notice any of the following: Develop chills (warm to touch), or if you have a thermometer and your temperature is above 101 Difficulty breathing or difficultly swallowing Persistent vomiting Any bleeding ? exceeding one tablespoon 6. Call your physician if the site where your intravenous was started becomes red, swollen, painful, and warm to touch. Referrals: Harris Elkins MD [ [facility] STAFF PHYSICIAN] - Activity:: No heavy lifting Remove Dressings/Wound Care:: 24 hours Shower/Bathe:: 24 hours Diet:: As Tolerated DS: Diagnosis Discharge Diagnosis (1) Inguinal hernia: Status: Acute Asessment and Plan: [place], we were able to fix your right-sided inguinal hernia today. Things went very smoothly, and hopefully this will provide some relief to the discomfort that you have been experiencing. We look forward to seeing you in the office.
--- NOTE | 2022-12-06 07:30 | ROE_ITS ---
Date of service: 12/06/22 Time of Service: 12:46 Operative Note Operative Note DATE OF PROCEDURE: 12/06/22 PRE-OP DIAGNOSIS: Right-sided inguinal hernia POST-OP DIAGNOSIS: same PROCEDURE: Right-sided inguinal herniorrhaphy with mesh SURGEON: Harris Elkins SECURITY REPRESENTATIVE: Lorna Walters ANESTHESIA TYPE: Local By Surgeon and General LMA/ETT Refer to Anesthesia Record ESTIMATED BLOOD LOSS: 50 PATHOLOGY: none sent COMPLICATIONS: None Patient was transported to: PACU Patient's condition: stable Implants: Bard mesh patch Indications: Rik is a 52-year-old male has been experiencing right-sided groin pain. He underwent an ultrasound that demonstrated a right inguinal hernia. He is here for elective inguinal hernia repair Findings: Direct inguinal hernia Procedure Description: I began by confirming the correct site with the patient. Next, after induction of general anesthesia, a tap block was performed by their service using ultrasound guidance. The surgical site was then prepped and draped in the usual fashion. I began by making an oblique incision over the right inguinal region. I dissected down through the skin to the deep fascia. Next, I incised the fascia along the length of the inguinal canal to the external ring. I then carefully identified the ilioinguinal nerve and sharply divided. Once this was complete, I bluntly dissected the shelving edge of the inguinal ligament down towards the pubic tubercle. Here, I encircled all cord structures with a Jackson drain. Next, I began dissecting the specific cord structures. Great care was taken to spare the vas deferens and the blood supply to the testicle. I did not see any evidence of an indirect inguinal hernia, but the floor of the inguinal canal was quite lax, and there was some peritoneum pushing up from the middle. I reduced it back to its normal anatomic position. Next, I buttressed the posterior floor of the inguinal canal with a large mesh patch. I started by fixing it to the pubic tubercle. I cut it to fit. Next, I used Prolene sutures to affix it to the shelving edge of the inguinal ligament and the conjoined tendon. Laterally I tacked it to the external oblique fascia and reconstructed an internal ring without any strain on the cord structures. Once this was complete, I irrigated the surgical field. It appeared hemostatic. I then closed the anterior portion of the fascia to reconstruct the front wall of the inguinal canal. I did this with interrupted Vicryl stitches. Once again, I irrigated the surgical field and inspected for hemostasis. Finally, I approximated the superficial fascia and the deep layers of the skin with absorbable suture. Skin was closed with running subcuticular stitches. Bandages were applied, the patient was awakened and transferred to the recovery unit.
[2022-12-06] MEDS: Lactated Ringers 1,000 ML 80 ML IV (09:36)
[2022-12-06] MEDS: Acetaminophen 500 MG TAB 1000 MG PO (09:44)
[2022-12-06] MEDS: Celecoxib 200 MG CAP PO (09:44)
[2022-12-06] MEDS: Gabapentin 300 MG CAP 600 MG PO (09:45)
--- NOTE | 2022-12-06 09:52 | ANES.PREOP_ITS ---
General Info Date of Service Date Performed: 12/06/22 Height: 5 ft 5 in Weight: 61.5 kg Body Mass Index (BMI): 22.5 Surgical Procedure: Operation Date: 12/06/22 09:40 Proposed Procedure Side Surgeon p Herniorrhaphy Inguinal w/Mesh Right Harris Elkins MD Meds Allergies and Home Medications Allergies Allergy/AdvReac Type Severity Reaction Status Date / Time mushroom Allergy Unknown Verified 12/06/22 09:36 sulfamethoxazole Allergy Hives Unverified 12/06/22 09:36 [From Bactrim] trimethoprim [From Bactrim] Allergy Hives Unverified 12/06/22 09:36 Home Medication Medication Instructions Recorded omeprazole 20 mg tablet,delayed 20 mg PO DAILY 02/21/20 release clonidine HCl 0.2 mg tablet 0.2 mg PO TID 07/29/21 buprenorphine 8 mg-naloxone 2 mg 2 film sublingual DAILY 07/04/22 sublingual film (Suboxone) dexmethylphenidate 15 mg 40 mg PO DAILY 07/04/22 capsule,extended release [id number] (Focalin XR) escitalopram oxalate 20 mg tablet 40 mg PO DAILY 07/04/22 (Lexapro) gabapentin 100 mg capsule 300 mg PO BID 07/04/22 lurasidone 40 mg tablet (Latuda) 40 mg PO DAILY 07/04/22 zolpidem 5 mg tablet (Ambien) 5 mg PO QHS PRN 07/04/22 albuterol sulfate 90 mcg/actuation 2 puff inhalation Q6H PRN 08/24/22 aerosol inhaler (ProAir HFA) shortness of breath or wheezing #8.5 grams prazosin 1 mg capsule 1 mg PO QHS 10/05/22 glecaprevir 100 mg-pibrentasvir 40 3 tab PO DAILY 10/10/22 mg tablet (Mavyret) budesonide-formoterol HFA 80 inhalation PRN 12/06/22 mcg-4.5 mcg/actuation aerosol inhaler (Symbicort) tramadol 100 mg tablet 100 mg PO BID PRN pain #6 tabs 12/06/22 Current Visit Medications: Current Medications Generic Name Dose Route Start Last Admin Trade Name Freq PRN Reason Stop Dose Admin Acetaminophen 1,000 mg 12/06/22 06:00 12/06/22 09:44 Acetaminophen 500 Mg Tab PO 12/06/22 16:00 1,000 mg PREOP CJ Administration Celecoxib 200 mg 12/06/22 06:00 12/06/22 09:44 Celecoxib 200 Mg Cap PO 12/06/22 16:00 200 mg PREOP CJ Administration Gabapentin 600 mg 12/06/22 06:00 12/06/22 09:45 Gabapentin 300 Mg Cap PO 12/06/22 16:00 600 mg PREOP CJ Administration Ringer's Solution 1,000 mls @ 80 mls/hr 12/06/22 06:00 12/06/22 09:36 IV 01/04/23 23:59 80 mls/hr INFUSION CJ Administration Cefazolin Sodium/Dextrose 2 gm in 50 mls @ 100 mls/hr 12/06/22 06:00 Ancef Duplex IVPB 12/06/22 16:00 PREOP CJ IV Miscellaneous Supplies 1 each 12/06/22 06:00 Iv Access IV 01/04/23 23:59 DIRECTED CJ Sodium Chloride 0 ml 12/06/22 06:00 Normal Saline Flush 10 Ml Syr IV 01/04/23 23:59 PRN PRN Sodium Chloride 0 ml 12/06/22 06:00 Normal Saline 10 Ml Vial IJ 01/04/23 23:59 DIRECTED PRN Sterile Water 0 ml 12/06/22 06:00 Water,Injection,Sterile 10 Ml Vial IJ 01/04/23 23:59 DIRECTED PRN PFSH Active Problems Active Problems: Problem Status Onset Code Screening for colon cancer Z12.11 Unintentional weight loss R63.4 Shortness of breath R06.02 Hepatitis K75.9 Inguinal hernia K40.90 Medical History Medical History (Updated 12/06/22 @ 09:51 by Lorena Hooper RN) ADHD Bipolar disorder Chronic low back pain GERD (gastroesophageal reflux disease) Hepatitis C History of prediabetes Narcotic abuse in remission PTSD (post-traumatic stress disorder) Rash RLS (restless legs syndrome) Surgical History Surgical History History of appendectomy History of colonoscopy (~11/17/22) Tobacco Smoking/Tobacco Use Status: Never Alcohol Alcohol Intake: current Alcohol intake frequency: a few times a month Alcohol type: beer Substance Use Substance use type: other Details: daily marijuana use-smokes. last smoked marijuana 1 hour ago. suboxone Vital Signs and Lab Results Vital Signs Most Recent Vital Signs in EMR: Most Recent Vital Signs Temp Pulse Resp BP Pulse Ox 36.3 C L 60 16 117/73 98 12/06/22 09:15 12/06/22 09:15 12/06/22 09:15 12/06/22 09:15 12/06/22 09:15 Lab Results Blood Type / Crossmatch: No Data to Display Complete Blood Count: White Blood Count 4.57 10^3/uL (4.4-10.8) 11/07/22 13:20 Red Blood Count 4.67 10^6/uL (4.36-5.78) 11/07/22 13:20 Hemoglobin 13.7 g/dL (13.5-17.5) 11/07/22 13:20 Hematocrit 39.4 % (40.0-50.0) L 11/07/22 13:20 Platelet Count 210 10^3/uL (130-400) 11/07/22 13:20 Complete Metabolic Panel: Sodium 139 mmol/L (136-145) 11/07/22 13:20 Potassium 3.6 mmol/L (3.5-5.1) 11/07/22 13:20 Chloride 102 mmol/L (98-107) 11/07/22 13:20 Carbon Dioxide 30.1 mmol/L (21.0-32.0) 11/07/22 13:20 BUN 15 mg/dL (7-18) 11/07/22 13:20 Creatinine 0.9 mg/dL (0.70-1.30) 11/07/22 13:20 Est GFR (CKD-EPI 2020) 102.76 (mL/min/1.73m2) 11/07/22 13:20 Calcium 9.0 mg/dL (8.5-10.1) 11/07/22 13:20 Albumin 4.1 g/dL (3.4-5.0) 11/07/22 13:20 Glucose 140 mg/dL (74-106) H 11/07/22 13:20 Liver Function Panel: Alanine Aminotransferase (ALT/SGPT) 29 U/L (16-63) 11/07/22 13: 20 Aspartate Amino Transf (AST/SGOT) 41 U/L (15-37) H 11/07/22 13: 20 Coagulation Panel: No Data to Display Cardiac Panel: No Data to Display Arterial Blood Gas: No Data to Display Venous Blood Gas: No Data to Display Pancreas Panel: No Data to Display Thyroid Panel: No Data to Display Infectious Disease: Hepatitis C Antibody Reactive (Negative) A 11/07/22 13:20 Hepatitis C RNA Quantitative Not Applicable 11/24/22 10:50 Blood Cultures: No Data to Display Toxicology Panel: No Data to Display Imaging and Studies Imaging and Studies Study information below may be from another EMR and interpreted by another provider. Please see original notes in EMR for more complete details. EKG Summary: 09/10 Sinus rhythm...normal P axis, V-rate 60- 99 Normal Electrocardiogram Anesthesia Assessment and Plan Anesthesia History Personal History: No History of Anesthesia Complications Family History: Family History Unknown Exercise Tolerance Exercise Tolerance: Metabolic Equivalents>4 Pertinent Negatives Pertinent Negatives: No Symptoms of GERD, No Major Cardiovascular Symptoms or Complaints, No Major Pulmonary Symptoms or Complaints (Asthma - albuterol as needed hasnt taken in 2 months) and No History of CVA/TIA Cardiac & Pulmonary Exam Cardiac Exam: Normal S1/S2 Heart Sounds Pulmonary Exam: Clear Bilateral Breath Sounds Implantable Cardiac Device Does patient have a Pacemaker or an ICD?: No Airway Exam Known Difficult Airway: No Mallampati Class: 2 Mouth Opening: Normal (> 3cm) Thyromental Distance: Greater than 3 cm Facial Hair: Full Moreno (Facial hair ) Neck Range of Motion: Full ROM Neck Circumference: Normal Teeth Condition: Normal Dentition and Generalized Poor Dentition Airway Comments: Missing all upper teeth& bilateral lower molars ASA Classification ASA Score: ASA 2 Emergency Case?: No NPO Status NPO Status: NPO Clears >2 hours, Solids >8 hours (Drank a couple sips of soda at 0845 ) Anesthesia Plan Resuscitation Status: Full Code Anesthesia Technique: General Anesthesia Airway Planned: LMA Pain Management: Surgeon and patient request nerve block Monitors Used: Standard Monitors
[2022-12-06] MEDS: ceFAZolin 2 GM/50 ML BAG IVPB (11:49)
[2022-12-06] MEDS: Bupivacaine 0.5% Pres-Free W/EPI 30 ML VIAL (12:05)
--- NOTE | 2022-12-06 12:12 | W.ANESNERVE ---
Nerve Block Single Injection Procedure Date and Time Date Performed: 12/06/22 Procedure Start: 11:50 Location Where Procedure Performed Procedure Location: Operating Room Procedure Stop: 11:59 Reason Performed: Postoperative Analgesia Requesting Provider: Harris Elkins Timeout Performed Timeout Performed: Yes Monitoring Used ECG, Blood Pressure, SpO2, ETCO2 and See EMR for corresponding vital signs Sterility Sterility: Hand Hygiene, Surgical Cap, Surgical Mask, Sterile Gloves and Chlorhexidine Sedation Given During Procedure Sedation Given (Indicate Dose Given): No Sedation given Patient Mental Status Patient Mental Status: Performed under general anesthesia Nerve Block 1st Nerve Block: Laterality: Right Block Type: TAP Unilateral Ultrasound Image Saved?: Yes Needle / Catheter Used: 100mm SonoPlex II Local Anesthetic Bolus (Indicate Dose Given): Bupivacaine 0.25% Dose:: 20 Additives (Indicate Dose Given): None Ultrasound: Sterile probe cover and gel used Nerve Stimulator: Not Used Paresthesia: None Procedure Tolerated: No Complications Procedure Outcome: Successful Performed By: Judith Melissa Supervised By: Jim Horta
[2022-12-06] MEDS: HYDROmorphone 2 MG/ML SYR IVP ×3 (13:13→13:51)
[2022-12-06] MEDS: Normal Saline Flush 10 ML SYR IV ×2 (13:13→13:44)
[2022-12-06] MEDS: LORazepam 2 MG/ML VIAL 0.5 MG IVP (13:43)
--- NOTE | 2022-12-06 15:12 | W.ANESPOSTOP ---
Postoperative Evaluation Date, Time and Location Date Performed: 12/06/22 Time Performed: 15:13 Patient Location: Day Surgery Unit Vital Signs Most Recent Imported Vital Signs: Most Recent Vital Signs Temp Pulse Resp BP Pulse Ox 36.4 C L 54 L 14 125/84 99 12/06/22 14:05 12/06/22 14:05 12/06/22 14:05 12/06/22 14:05 12/06/22 14:05 Pain Score Most Recent Pain Score: Most Recent Pain Score Pain Level 6 12/06/22 14:05 Assessment Mental Status: Awake (Alert & Oriented to Patient Baseline) Airway and Respiratory Function: Patent airway with normal (patient baseline) respiratory exam Cardiovascular Function: Hemodynamically Stable Hydration Status: Adequately Hydrated Nausea & Vomiting: No Nausea or Vomiting Pain: Pain is tolerable per patient (3 outif 10) Peripheral Nerve Block: Other (Pain level 3)
== END 2022-12-06 15:46 | disposition home or self-care (01) ==
PROVIDERS: PCP Nurse Practitioner Family; Visit Provider Surgery
PROC: (CPT 49505; principal; 2022-12-06 09:30)
DX: K40.90 Unilateral inguinal hernia, without obstruction or gangrene, not specified as recurrent (principal); K21.9 Gastro-esophageal reflux disease without esophagitis
CPT/HCPCS: 49505; 76942; C1781; J0690; J1100; J1170; J2060; J2405; J2704

== ENCOUNTER 2023-01-20 10:52 | Emergency (ER) | payer MEDICAID, SELFPAY ==
--- NOTE | 2023-01-20 10:59 | ED.GENADUL_ITS ---
Discharge Plan Disposition Patient Disposition: Home Discharge Details Clinical Impression: KRISTYN Primary Care Provider: Sharmaine Rodriguez ED Provider: Jesus Bell Home Meds and New Rx's Prescriptions: No Action prazosin 1 mg capsule 1 mg PO QHS zolpidem [Ambien] 5 mg tablet 5 mg PO QHS PRN dexmethylphenidate [Focalin XR] 15 mg capsule,ER biphasic 50-50 40 mg PO DAILY buprenorphine-naloxone [Suboxone] 8-2 mg film 2 film sublingual DAILY Rx Instructions: place 1 strip/tab under (each) side of tongue escitalopram oxalate [Lexapro] 20 mg tablet 40 mg PO DAILY Latuda 40 mg tablet 40 mg PO DAILY Rx Instructions: must administer with food (at least 350 calories) gabapentin 100 mg capsule 300 mg PO BID omeprazole 20 mg Tablet,Delayed Release (Dr/Ec) 20 mg PO DAILY albuterol sulfate [ProAir HFA] 90 mcg/actuation HFA aerosol inhaler 2 puff inhalation Q6H PRN (Reason: shortness of breath or wheezing) Qty: 8.5 0RF budesonide-formoterol [Symbicort] 80-4.5 mcg/actuation Hfa Aerosol Inhaler INHALATION PRN clonidine HCl 0.2 mg tablet 0.2 mg PO TID Discharge Instructions Instructions: COVID-19 (Coronavirus Disease 2019) (ED) Additional Instructions: Continue to stay well-hydrated and get plenty of rest during illness. If you continue to improve and are fever free you may return to work as per state guidelines. Stand Alone Forms: Work Release Referrals: Sharmaine Rodriguez [Primary Care Provider] - (As needed for reassessment) Discharge Data Discharge Date/Time-TO BE ENTERED AT DEPARTURE: 01/20/23 11:19 Medical Decision Making Patient presenting to the emergency department for need of work note. Patient states that on Monday he started having COVID-like symptoms and tested positive on home test. He is now fully recovered and improved but work will not allow him to go back until he is seen and cleared and receives a work note. Patient states that now he is asymptomatic afebrile no cough or other symptoms. Physical exam is unremarkable and patient is asymptomatic. Patient was given work note consistent with state and federal guidelines. After discussion of diagnosis and plan of care patient has no further needs, questions, or concerns and states clear understanding to return to the emergency department for any worsening symptoms. This documentation was generated using [employer] dictation system, please disregard any oddities of phrase or misspellings. HPI General Mode of arrival: ambulatory . Date/Time Provider Initiated Documentation: 01/20/23 10:59 . Limitations to Documentation: no limitations . Information obtained by: patient and RN notes reviewed . History of Present Illness 52 year old M presents to the emergency department with the chief complaint of Need of work note, Patient notes no other symptoms.. Patient did receive the following treatments prior to arrival, none Related Data Home Medications Medication Instructions Recorded Confirmed omeprazole 20 mg tablet,delayed 20 mg PO DAILY 02/21/20 01/20/23 release clonidine HCl 0.2 mg tablet 0.2 mg PO TID 07/29/21 01/20/23 buprenorphine 8 mg-naloxone 2 mg 2 film sublingual DAILY 07/04/22 01/20/23 sublingual film (Suboxone) dexmethylphenidate 15 mg 40 mg PO DAILY 07/04/22 01/20/23 capsule,extended release [id number] (Focalin XR) escitalopram oxalate 20 mg tablet 40 mg PO DAILY 07/04/22 01/20/23 (Lexapro) gabapentin 100 mg capsule 300 mg PO BID 07/04/22 12/21/22 lurasidone 40 mg tablet (Latuda) 40 mg PO DAILY 07/04/22 01/20/23 zolpidem 5 mg tablet (Ambien) 5 mg PO QHS PRN 07/04/22 12/21/22 albuterol sulfate 90 mcg/actuation 2 puff inhalation Q6H PRN 08/24/22 01/20/23 aerosol inhaler (ProAir HFA) shortness of breath or wheezing #8.5 grams prazosin 1 mg capsule 1 mg PO QHS 10/05/22 01/20/23 budesonide-formoterol HFA 80 inhalation PRN 12/06/22 12/21/22 mcg-4.5 mcg/actuation aerosol inhaler (Symbicort) Previous Rx's Medication Instructions Recorded albuterol sulfate 90 mcg/actuation 2 puff inhalation Q6H PRN 08/24/22 aerosol inhaler (ProAir HFA) shortness of breath or wheezing #8.5 grams Allergies Allergy/AdvReac Type Severity Reaction Status Date / Time mushroom Allergy Unknown Verified 01/20/23 11:11 sulfamethoxazole Allergy Hives Unverified 01/20/23 11:11 [From Bactrim] trimethoprim [From Bactrim] Allergy Hives Unverified 01/20/23 11:11 General Stated Complaint: [employer] MANUEL: 3 Review of Systems Narrative: 6 systems reviewed and unremarkable except what is marked below. ENT Ears, Nose, Mouth, and Throat: Denies nasal congestion and Denies sore throat Cardiovascular Cardiovascular: Denies chest pain and Denies dyspnea Respiratory Respiratory: Denies cough and Denies dyspnea PFSH All Active Problems (Updated 01/20/23 @ 11:02 by Jesus Bell NP) Screening for colon cancer (Acute) Unintentional weight loss (Acute) Shortness of breath (Acute) Hepatitis (Acute) Inguinal hernia (Acute) COVID (Acute) Medical History ADHD Bipolar disorder Chronic low back pain GERD (gastroesophageal reflux disease) Hepatitis C History of prediabetes Narcotic abuse in remission PTSD (post-traumatic stress disorder) Rash RLS (restless legs syndrome) Surgical History History of appendectomy History of colonoscopy (~11/17/22) Social History Smoking/Tobacco Use Status: Never Smoking risk assessment performed?: Yes Alcohol Intake: current Alcohol Intake frequency: a few times a month Alcohol type: beer Substance use type: other Details: daily marijuana use-smokes. last smoked marijuana 1 hour ago. suboxone Current gender identity: male Do you feel safe at home: Yes Do you feel safe in your relationship?: Yes Exam Const General: cooperative, no acute distress and not ill appearing Orientation: alert, awake and oriented x3 Resp Effort & Inspection: normal respiratory effort, able to speak in complete sentences and no respiratory distress Auscultation: clear to auscultation bilaterally Cardio Rate: regular rate Rhythm: regular rhythm Heart Sounds: S1 normal and S2 normal Skin General skin exam: no rashes or lesions noted Neuro General: patient alert, patient awake, patient oriented x3, moves all extremities and no focal motor deficits Sensory Exam: no sensory deficits noted
[2023-01-20 11:07] VITALS: BP 116/77; PULSE 72; RESP 16; TEMP 36.6; O2SAT 96
== END 2023-01-20 11:19 | disposition home or self-care (01) ==
PROVIDERS: Emergency Provider Nurse Practitioner Family; PCP Nurse Practitioner Family
DX: U07.1 COVID-19 (principal)
CPT/HCPCS: 99281; 99282

== ENCOUNTER 2023-03-04 12:08 | Emergency (ER) | payer MEDICAID, SELFPAY ==
[2023-03-04 12:12] VITALS: BP 120/103; PULSE 97; RESP 20; TEMP 36.6; O2SAT 97
--- NOTE | 2023-03-04 12:29 | ED.GENADUL_ITS ---
Discharge Plan Disposition Patient Disposition: Home Condition: Improving Discharge Details Clinical Impression: Rt inguinal pain, Asthma exacerbation Primary Care Provider: Hilary Cade ED Provider: Jesus Bell Home Meds and New Rx's Prescriptions: New prednisone 20 mg tablet 40 mg PO DAILY Qty: 8 0RF budesonide-formoterol [Symbicort] 80-4.5 mcg/actuation HFA aerosol inhaler 2 puff inhalation BID Qty: 10.2 0RF Continued prazosin 1 mg capsule 1 mg PO QHS zolpidem [Ambien] 5 mg tablet 5 mg PO QHS PRN dexmethylphenidate [Focalin XR] 15 mg capsule,ER biphasic 50-50 40 mg PO DAILY buprenorphine-naloxone [Suboxone] 8-2 mg film 2 film sublingual DAILY Rx Instructions: place 1 strip/tab under (each) side of tongue escitalopram oxalate [Lexapro] 20 mg tablet 40 mg PO DAILY Latuda 40 mg tablet 40 mg PO DAILY Rx Instructions: must administer with food (at least 350 calories) gabapentin 100 mg capsule 300 mg PO BID omeprazole 20 mg Tablet,Delayed Release (Dr/Ec) 20 mg PO DAILY albuterol sulfate [ProAir HFA] 90 mcg/actuation HFA aerosol inhaler 2 puff inhalation Q6H PRN (Reason: shortness of breath or wheezing) Qty: 8.5 0RF budesonide-formoterol [Symbicort] 80-4.5 mcg/actuation Hfa Aerosol Inhaler INHALATION PRN Patient Comments: Pt states he does not have this inhaler since he changed providers clonidine HCl 0.2 mg tablet 0.2 mg PO TID Discharge Instructions Instructions: Asthma (ED) Additional Instructions: I feel that the inguinal pain that you came in with is secondary to may be some post operative scarring that was irritated during lifting. At this time you have no evidence of hernia or other intra-abdominal or pelvic complications. For your asthma symptoms you have been prescribed a steroid and please start this tomorrow and take as directed. Also continue to use your provided inhaler 1 to 2 puffs every 4-6 hours as needed for shortness of breath or wheezing. If you develop any new or significant worsening of symptoms feel free to return the emergency department for reassessment otherwise follow-up with your primary care provider next week if not improving. Referrals: Hilary Cade MD [Primary Care Provider] - 1 week (As needed for reassessment or if not improving) Discharge Data Discharge Date/Time-TO BE ENTERED AT DEPARTURE: 03/04/23 15:55 Medical Decision Making Patient presenting to the emergency department for 2 different complaints. Patient states for the last 3 days after returning to work he has had increased of his asthma type symptoms, he states increased shortness of breath wheezing and chest tightness. He did just start using his inhaler last night but has not noticed much improvement. He did state some subjective chills. Patient's bigger complaint though is while at work he was lifting something and he felt a pop and burning sensation to his groin with noted swelling to the area. Denies any change of bowel movements but does state significant amount of pain and discomfort to the area where surgery was recently performed approximately 4 months ago. Physical exam shows diffuse expiratory wheezing with prolonged expiration, normal cardiac exam, normal abdominal exam except for tenderness to the incisional site and distal to the incision there is some noted swelling. We will plan on checking patient for COVID flu RSV given respiratory symptoms with subjective chills, will perform chest x-ray, and will give inhaler/albuterol to see if this helps patient. For abdominal pain we will perform labs including lactate and CT imaging. Pending results will give ketorolac. Reviewed patient's labs and CBC shows low lymphocytes otherwise unremarkable results. CMP shows slightly low potassium at 3.2 which we will orally replete, glucose of 122, AST at 42 and total protein at 9.0. Patient is negative for COVID flu and RSV. VBG lactate does show 1.8. Review of radiological imaging shows no acute inguinal hernia or abdominal findings, chest x-ray also shows no acute findings. Reassessed patient patient does state significant improvement of symptoms. For acute asthma exacerbation we will place patient on steroids and encourage continued use of inhaler. And patient to use [id number] medication for pain medication. After discussion of diagnosis and plan of care patient has no further needs, questions, or concerns and states clear understanding to return to the emergency department for any worsening symptoms. This documentation was generated using fishfishmeation system, please disregard any oddities of phrase or misspellings. Imaging Data Radiologic Study: Imaging: CT Scan Radiologist's impression: Exam(s) PROCEDURE INFORMATION: Exam: CT Abdomen And Pelvis With Contrast Exam date and time: 03/04/2023 2:27 PM Age: 52 years old Clinical indication: Pain; Other: Site of inguinal hernia repair; Prior surgery; Surgery date: <1 month TECHNIQUE: Imaging protocol: Computed tomography of the abdomen and pelvis with contrast. COMPARISON: CT ABDOMEN PELVIS W 09/09/2022 8:14 AM FINDINGS: Lungs: The visualized lung bases are clear. Liver: Stable 7 mm calcification of the lateral margin of the posterior segment of the right hepatic lobe. No other abnormalities of the liver. Gallbladder and bile ducts: Normal. No calcified stones. No ductal dilation. Pancreas: Stable punctate calcifications in the uncinate process. The pancreas is otherwise unremarkable. Spleen: Normal. No splenomegaly. Adrenal glands: Normal. No mass. Kidneys and ureters: Normal. No hydronephrosis. Stomach and bowel: Unremarkable. No obstruction. No mucosal thickening. Appendix: No evidence of appendicitis. Intraperitoneal space: Unremarkable. No free air. No significant fluid collection. Vasculature: Unremarkable. No abdominal aortic aneurysm. Lymph nodes: Unremarkable. No enlarged lymph nodes. Urinary bladder: Unremarkable as visualized. Reproductive: Unremarkable as visualized. Bones/joints: No acute bone findings. Soft tissues: Mild asymmetric prominence in the soft tissues of the proximal right inguinal canal. This is unchanged from the prior study. No inguinal hernia or other acute findings of the inguinal canals. IMPRESSION: No inguinal hernia or other acute findings. Radiologic Study #2: Radiologist's impression: Exam(s) PROCEDURE INFORMATION: Exam: XR Chest Exam date and time: 03/04/2023 2:32 PM Age: 52 years old Clinical indication: Cough TECHNIQUE: Imaging protocol: Radiologic exam of the chest. Views: 2 views. COMPARISON: CR XR PORTABLE CHEST AP 08/24/2022 8:25 AM FINDINGS: Lungs: No consolidation. No Mass Pleural spaces: No pleural effusion. No pneumothorax. Heart/Mediastinum: Unremarkable Bones/joints: No significant abnormality IMPRESSION: No acute findings. Lab Data Lab results reviewed: Yes I reviewed the patient's lab results. HPI General Mode of arrival: ambulatory . Date/Time Provider Initiated Documentation: 03/04/23 12:15 . Limitations to Documentation: no limitations . Information obtained by: patient and RN notes reviewed . History of Present Illness 52 year old M presents to the emergency department with the chief complaint of Asthma attack, abdominal pain, described as moderate, with intensity rated at 5. Quality is described as aching, and is localized to the pelvis. Patient started experiencing this day(s) (3) and it has been constant. No relieving factors improve symptom(s), No exacerbating factors reported . Patient did receive the following treatments prior to arrival, none Related Data Home Medications Medication Instructions Recorded Confirmed omeprazole 20 mg tablet,delayed 20 mg PO DAILY 02/21/20 03/04/23 release clonidine HCl 0.2 mg tablet 0.2 mg PO TID 07/29/21 03/04/23 buprenorphine 8 mg-naloxone 2 mg 2 film sublingual DAILY 07/04/22 03/04/23 sublingual film (Suboxone) dexmethylphenidate 15 mg 40 mg PO DAILY 07/04/22 03/04/23 capsule,extended release [id number] (Focalin XR) escitalopram oxalate 20 mg tablet 40 mg PO DAILY 07/04/22 03/04/23 (Lexapro) gabapentin 100 mg capsule 300 mg PO BID 07/04/22 03/04/23 lurasidone 40 mg tablet (Latuda) 40 mg PO DAILY 07/04/22 03/04/23 zolpidem 5 mg tablet (Ambien) 5 mg PO QHS PRN 07/04/22 03/04/23 albuterol sulfate 90 mcg/actuation 2 puff inhalation Q6H PRN 08/24/22 03/04/23 aerosol inhaler (ProAir HFA) shortness of breath or wheezing #8.5 grams prazosin 1 mg capsule 1 mg PO QHS 10/05/22 03/04/23 budesonide-formoterol HFA 80 inhalation PRN 12/06/22 12/21/22 mcg-4.5 mcg/actuation aerosol inhaler (Symbicort) budesonide-formoterol HFA 80 2 puff inhalation BID #10.2 grams 03/04/23 mcg-4.5 mcg/actuation aerosol inhaler (Symbicort) prednisone 20 mg tablet 40 mg PO DAILY #8 tabs 03/04/23 Previous Rx's Medication Instructions Recorded albuterol sulfate 90 mcg/actuation 2 puff inhalation Q6H PRN 08/24/22 aerosol inhaler (ProAir HFA) shortness of breath or wheezing #8.5 grams budesonide-formoterol HFA 80 2 puff inhalation BID #10.2 grams 03/04/23 mcg-4.5 mcg/actuation aerosol inhaler (Symbicort) prednisone 20 mg tablet 40 mg PO DAILY #8 tabs 03/04/23 Allergies Allergy/AdvReac Type Severity Reaction Status Date / Time mushroom Allergy Unknown Verified 03/04/23 12:13 sulfamethoxazole Allergy Hives Unverified 03/04/23 12:13 [From Bactrim] trimethoprim [From Bactrim] Allergy Hives Unverified 03/04/23 12:13 General Stated Complaint: Abd Prob MANUEL: 3 Review of Systems Constitutional Constitutional: Reports chills and Reports fever(s) Eyes Eyes: Denies eye discharge ENT Ears, Nose, Mouth, and Throat: Reports as per HPI, Denies ear discharge, Denies otalgia, Reports nasal congestion, Denies neck pain, Reports sore throat and Denies throat swelling Cardiovascular Cardiovascular: Denies chest pain and Reports dyspnea Respiratory Respiratory: Reports cough, Reports dyspnea and Reports wheezing Gastrointestinal Gastrointestinal: Reports abdominal pain (At hernia site), Denies constipation and Denies diarrhea Genitourinary Genitourinary: Denies genital pain, Denies dysuria, Denies scrotal swelling, Denies testicular mass and Denies testicular pain Musculoskeletal Musculoskeletal: Denies joint swelling and Denies neck pain Integumentary/Breasts Skin/Breast: Denies rash Allergic/Immunologic Allergic/Immunologic: Denies throat swelling and Reports wheezing PFSH All Active Problems (Updated 03/04/23 @ 15:45 by Jesus Bell NP) Screening for colon cancer (Acute) Unintentional weight loss (Acute) Shortness of breath (Acute) Hepatitis (Acute) Inguinal hernia (Acute) COVID (Acute) Rt inguinal pain (Acute) Asthma exacerbation (Acute) Medical History ADHD Bipolar disorder Chronic low back pain GERD (gastroesophageal reflux disease) Hepatitis C History of prediabetes Narcotic abuse in remission PTSD (post-traumatic stress disorder) Rash RLS (restless legs syndrome) Surgical History History of appendectomy History of colonoscopy (~11/17/22) Social History Smoking/Tobacco Use Status: Never Smoking risk assessment performed?: Yes Alcohol Intake: former Drug use: Daily Substance use type: marijuana and other Details: daily marijuana use-smokes. last smoked marijuana 03/01/23 Current gender identity: male Do you feel safe at home: Yes Do you feel safe in your relationship?: Yes Exam Const General: cooperative, comfortable and no acute distress Orientation: alert and awake HENMT Head: normal to inspection, normocephalic and atraumatic Ears: hearing grossly normal bilaterally and TM's normal bilaterally General nose exam: external nose normal Face and sinus: no erythema Mouth: oral mucosae normal, no drooling, no muffled voice and no trismus Throat: posterior oropharynx normal Neck Neck: normal visual inspection, full ROM, no lymphadenopathy, no meningeal signs, trachea midline and supple Resp Effort & Inspection: normal respiratory effort, able to speak in complete sentences and cough Quality of cough: dry Auscultation: wheezes expiratory wheezes Cardio Rate: regular rate Rhythm: regular rhythm Heart Sounds: S1 normal, S2 normal, normal S1 and S2, no click, no gallops, no murmurs and no rubs GI Inspection: normal to inspection and no abdominal wall ecchymosis Palpation: soft, no hepatosplenomegaly, not firm, no guarding, no masses, no pulsatile masses, not rigid, no splenomegaly and tender ( over incision site and distal inguinal canal) Auscultation: normal bowel sounds Back/Spine/Pelvis Back: no CVA tenderness Skin General skin exam: no rashes or lesions noted and dry skin (warm) Neuro General: patient alert, patient awake, patient oriented x3, gait normal and moves all extremities Cognition: normal cognition Speech: speech normal Course Vital Signs Vital signs: Vital Signs Temperature 36.6 C 03/04/23 12:12 Pulse 97 H 03/04/23 12:12 Respiratory Rate 20 03/04/23 12:12 Blood Pressure 120/103 H 03/04/23 12:12 Pulse Oximetry 97 03/04/23 12:12 Temperature 36.6 C 03/04/23 12:12 Temperature Source Skin 03/04/23 12:12 Pulse 97 H 03/04/23 12:12 Respiratory Rate 20 03/04/23 12:12 Respiratory Effort Short of Breath 03/04/23 12:21 Blood Pressure 120/103 H 03/04/23 12:12 Blood Pressure Position Sitting 03/04/23 12:12 Pulse Oximetry 97 03/04/23 12:12 Oxygen Delivery Method Room Air 03/04/23 12:12 Oxygen Flow Rate 0 03/04/23 12:12 Pain Level 8 03/04/23 12:21
[2023-03-04] MEDS: Dexamethasone 10 MG/ML VIAL PO (12:40)
[2023-03-04 12:41] VITALS: PULSE 97; RESP 20; O2SAT 97
[2023-03-04] MEDS: Albuterol 2.5 MG/3 ML INH SOLN VIAL UPD (12:41)
--- NOTE | 2023-03-04 13:15 | DI.CT_ITS ---
Exam(s) CT ABDOMEN PELVIS W EXAM: CT ABDOMEN PELVIS W CLINICAL HISTORY: Right inguinal pain? Hernia. TECHNIQUE: Imaging Protocol: Axial computed tomography images with coronal and sagittal reformatted images were created and reviewed CONTRAST MATERIAL: Intravenous: Omnipaque-350 100cc Oral: None COMPARISON: CT CT ABDOMEN PELVIS W from 09/09/2022 FINDINGS: VISUALIZED LUNG BASES: No nodules nor pleural effusions evident. ABDOMEN: There is no ascites. LIVER: There are no focal hepatic lesions evident. No dilated intrahepatic ducts. GALLBLADDER/BILIARY: No obvious gallbladder pathology. CBD is not dilated. PANCREAS: Parenchymal calcifications in the region of the uncinate process are unchanged. No mass se en at this level. Pancreatic duct is not dilated SPLEEN: Spleen is not enlarged. No obvious intrasplenic lesions. Splenic and portal veins are paten t. ADRENALS: There are no significant adrenal masses. KIDNEYS:The previously noted small calculus in the left kidney is no longer seen. No hydronephrosis nor hydroureter evident and there are no radiopaque calculi in the urinary bladder. No solid renal m asses nor cysts.. ABDOMINAL AORTA: Abdominal aorta is not enlarged. LYMPH NODES:There is no retroperitoneal nor paraaortic adenopathy. ABDOMINAL WALL: No evidence of significant anterior abdominal wall nor inguinal hernia. GI: There is no evidence of bowel obstruction, free air, nor abscess. PELVIS: GI: No evidence of appendicitis.No evidence of sigmoid diverticulitis. LYMPH NODES: There is no intrapelvic nor inguinal adenopathy. REPRODUCTIVE: Prostate size normal. Seminal vesicles unremarkable. URINARY BLADDER: Uniform thickening of the urinary bladder wall noted. Again noted is a previously described subcutaneous radiopaque foreign body in the dorsal aspect of th e penis measuring 8 x 5 x 12 mm. There is no abscess at this level. OSSEOUS: No fractures and no significant osseous lesions. IMPRESSION: 1. Stable calcification noted in the uncinate process of the pancreas. No associated mass at this le anisa nor elsewhere in the pancreas and there is no dilatation of the pancreatic duct. 2. No calculi evident in either urinary tract at this time. No calculi in the urinary bladder. No h ydronephrosis. 3. Subcutaneous dorsal penis foreign body again noted, unchanged. Possible ornament. RADIATION DOSE DELIVERED: 904.62mGy.cm Total DLP DATA REPOSITORY: All CT scans at this facility are submitted to the National Radiology Data Registry (NRDR) Dose Index Registry (DIR) with the [employer] (A[employer]). RADIATION OPTIMIZATION: All CT scans at this facility use at least one of these dose optimization te chniques: automated exposure control; mA and/or kV adjustment per patient size (includes targeted exa ms where dose is matched to clinical indication); or iterative reconstruction.
[2023-03-04 13:19] LABS: COVID-19 PCR Negative (Negative); Influenza A PCR Negative (Negative); Influenza B PCR Negative (Negative); RSV PCR Negative (Negative)
[2023-03-04 13:21] LABS: Source Nasopharynx
--- NOTE | 2023-03-04 13:25 | DI.RAD_ITS ---
Exam(s) XR CHEST 2V PA LATERAL EXAM: XR CHEST 2V PA LATERAL CLINICAL HISTORY: cough. TECHNIQUE: 2D digital imaging was performed. COMPARISON: CR XR PORTABLE CHEST AP from 08/24/2022 FINDINGS: 2 views: Heart size is normal. The mediastinum is not widened. Lungs are clear. No infiltrates nor pleural effusions. IMPRESSION: No acute pulmonary findings. DATA REPOSITORY: RADIATION DOSE DELIVERED:
[2023-03-04] MEDS: Normal Saline 1,000 ML 1000 ML IV (13:37)
[2023-03-04 13:43] LABS: Lactate 1.8 mmol/L (0.6-1.4)
[2023-03-04 13:44] LABS: Abs Immature Grans 0.01 10^3/uL (0.0-0.06); Absolute Basophil Count 0.03 10^3/uL (0.0-0.2); Absolute Eosinophil Count 0.04 10^3/uL (0.0-0.7); Absolute Lymphocyte Count 1.02 10^3/uL (1.2-3.4); Absolute Monocyte Count 0.26 10^3/uL (0.1-0.8); Absolute Neutrophil Count 3.95 10^3/uL (1.2-6.7); Basophils % 0.6; Eosinophils % 0.8; HCT 43.2 % (40.0-50.0); HGB 15.1 g/dL (13.5-17.5); Immature Grans % 0.2; Lymphocytes % 19.2; MCH 29.5 pg (27.0-33.0); MCV 84 fL (80-95); Monocytes % 4.9; Neutrophils % 74.3; Platelet Count 207 10^3/uL (130-400); RBC 5.12 10^6/uL (4.36-5.78); RDW 12.7 % (11.8-14.1); RDW-SD 39.1 fL; WBC 5.31 10^3/uL (4.4-10.8)
[2023-03-04] MEDS: Ketorolac 15 MG/ML VIAL IVP (13:46)
[2023-03-04 14:00] LABS: ALT 42 U/L (16-63); AST 42 U/L (15-37); Albumin 4.4 g/dL (3.4-5.0); Alkaline Phosphatase 95 U/L (46-116); Anion Gap 10.9 mmol/L (3-11); BUN 17 mg/dL (7-18); Bilirubin, Total 0.4 mg/dL (0.2-1.0); CO2 27.1 mmol/L (21.0-32.0); Calcium 9.3 mg/dL (8.5-10.1); Chloride 105 mmol/L (98-107); Estimated GFR 90.56 (mL/min/1.73m2); Glucose 122 mg/dL (74-106); Magnesium 2.2 mg/dL (1.8-2.4); Potassium 3.2 mmol/L (3.5-5.1); Sodium 143 mmol/L (136-145)
[2023-03-04] MEDS: Inhaler, Assist Device 1 EACH MC (14:01)
[2023-03-04] MEDS: Omnipaque 350 MG/ML 500 ML BTL-Imaging package 100 ML IJ (14:28)
[2023-03-04] MEDS: Normal Saline - Diluent 50 ML VIAL IJ (14:30)
[2023-03-04] MEDS: POTASSIUM CHLORIDE 20 MEQ, POTASSIUM CHLORIDE 10 MEQ 30 MEQ PO (14:40)
[2023-03-04 14:47] VITALS: BP 131/68; PULSE 93; RESP 16; TEMP 37; O2SAT 96
--- NOTE | 2023-03-04 14:58 | DI.VRAD_ITS ---
PROCEDURE INFORMATION: Exam: CT Abdomen And Pelvis With Contrast Exam date and time: 03/04/2023 2:27 PM Age: 52 years old Clinical indication: Pain; Other: Site of inguinal hernia repair; Prior surgery; Surgery date: <1 month TECHNIQUE: Imaging protocol: Computed tomography of the abdomen and pelvis with contrast. COMPARISON: CT ABDOMEN PELVIS W 09/09/2022 8:14 AM FINDINGS: Lungs: The visualized lung bases are clear. Liver: Stable 7 mm calcification of the lateral margin of the posterior segment of the right hepatic lobe. No other abnormalities of the liver. Gallbladder and bile ducts: Normal. No calcified stones. No ductal dilation. Pancreas: Stable punctate calcifications in the uncinate process. The pancreas is otherwise unremarkable. Spleen: Normal. No splenomegaly. Adrenal glands: Normal. No mass. Kidneys and ureters: Normal. No hydronephrosis. Stomach and bowel: Unremarkable. No obstruction. No mucosal thickening. Appendix: No evidence of appendicitis. Intraperitoneal space: Unremarkable. No free air. No significant fluid collection. Vasculature: Unremarkable. No abdominal aortic aneurysm. Lymph nodes: Unremarkable. No enlarged lymph nodes. Urinary bladder: Unremarkable as visualized. Reproductive: Unremarkable as visualized. Bones/joints: No acute bone findings. Soft tissues: Mild asymmetric prominence in the soft tissues of the proximal right inguinal canal. This is unchanged from the prior study. No inguinal hernia or other acute findings of the inguinal canals. IMPRESSION: No inguinal hernia or other acute findings. Dictated and Authenticated by: Ron French MD. Ordering:LORRAINE Lee MD
--- NOTE | 2023-03-04 14:59 | DI.VRAD_ITS ---
PROCEDURE INFORMATION: Exam: XR Chest Exam date and time: 03/04/2023 2:32 PM Age: 52 years old Clinical indication: Cough TECHNIQUE: Imaging protocol: Radiologic exam of the chest. Views: 2 views. COMPARISON: CR XR PORTABLE CHEST AP 08/24/2022 8:25 AM FINDINGS: Lungs: No consolidation. No Mass Pleural spaces: No pleural effusion. No pneumothorax. Heart/Mediastinum: Unremarkable Bones/joints: No significant abnormality IMPRESSION: No acute findings. Dictated and Authenticated by: Ron French MD. Ordering:LORRAINE Lee MD
[2023-03-04 15:47] VITALS: BP 135/79; PULSE 88; RESP 16; TEMP 36.9; O2SAT 99
== END 2023-03-04 15:55 | disposition home or self-care (01) ==
PROVIDERS: Emergency Provider Nurse Practitioner Family; PCP Family Medicine
DX: J45.901 Unspecified asthma with (acute) exacerbation (principal); R10.31 Right lower quadrant pain; E87.6 Hypokalemia; D72.810 Lymphocytopenia; Z79.51 Long term (current) use of inhaled steroids; Z20.822 Contact with and (suspected) exposure to COVID-19
CPT/HCPCS: 80053; 87637; 94640; 96361; 96374; 96375; 99285; 71046; 74177; 83605; 83735; 85025; 99284; J1100; J1885; J7613

== ENCOUNTER 2023-03-29 18:05 | Outpatient (REF) | payer MEDICAID, SELFPAY ==
[2023-03-31 09:59] LABS: Hepatitis C Ab w Rflx HCV PCR Reactive (Negative)
[2023-04-03 11:18] LABS: HCV RNA Qualitative Undetected (Undetected)
== END 2023-03-29 18:06 | disposition home or self-care (01) ==
LOC: NCHCN 18:05
PROVIDERS: PCP Family Medicine; Visit Provider Nurse Practitioner Family
DX: B19.20 Unspecified viral hepatitis C without hepatic coma (principal); R63.4 Abnormal weight loss; K21.9 Gastro-esophageal reflux disease without esophagitis
CPT/HCPCS: 86803; 87522

== ENCOUNTER 2023-11-14 09:26 | Emergency (ER) | payer MEDICAID, SELFPAY ==
[2023-11-14 09:27] VITALS: BP 150/83; PULSE 60; TEMP 36.1; O2SAT 100
[2023-11-14 09:30] VITALS: BP 150/83; O2SAT 100
--- NOTE | 2023-11-14 09:30 | RT.EKG_ITS ---
APPROVED REPORT Exam: Resting ECG Reason for Exam: abdominal pain Patient Location: E HR:57 bpm ECG Measurements Heart Rate 57 AXIS OK 66 P 246 QRSd 110 QRS 86 QT 478 T 35 QTc 467 Conclusion Sinus carter no acute changes
--- NOTE | 2023-11-14 09:37 | ED.GENADUL_ITS ---
Discharge Plan Disposition Patient Disposition: Home Discharge Details Clinical Impression: Chills, Elevated lactic acid level, Abdominal pain Primary Care Provider: Hilary Cade ED Provider: Xavier Son Home Meds and New Rx's Prescriptions: New ondansetron 4 mg tablet,disintegrating 4 mg PO Q6H PRN (Reason: nausea and vomiting) Qty: 30 0RF dicyclomine 10 mg capsule 10 mg PO TID PRN (Reason: abdominal pain) Qty: 20 0RF No Action prazosin 1 mg capsule 1 mg PO QHS zolpidem [Ambien] 5 mg tablet 5 mg PO QHS PRN dexmethylphenidate [Focalin XR] 15 mg capsule,ER biphasic 50-50 40 mg PO DAILY buprenorphine-naloxone [Suboxone] 8-2 mg film 2 film sublingual DAILY Rx Instructions: place 1 strip/tab under (each) side of tongue escitalopram oxalate [Lexapro] 20 mg tablet 40 mg PO DAILY Latuda 40 mg tablet 40 mg PO DAILY Rx Instructions: must administer with food (at least 350 calories) gabapentin 100 mg capsule 300 mg PO BID omeprazole 20 mg Tablet,Delayed Release (Dr/Ec) 20 mg PO DAILY albuterol sulfate [ProAir HFA] 90 mcg/actuation HFA aerosol inhaler 2 puff inhalation Q6H PRN (Reason: shortness of breath or wheezing) Qty: 8.5 0RF budesonide-formoterol [Symbicort] 80-4.5 mcg/actuation Hfa Aerosol Inhaler INHALATION PRN Patient Comments: Pt states he does not have this inhaler since he changed providers clonidine HCl 0.2 mg tablet 0.2 mg PO TID budesonide-formoterol [Symbicort] 80-4.5 mcg/actuation HFA aerosol inhaler 2 puff inhalation BID Qty: 10.2 0RF Discharge Instructions Instructions: Abdominal Pain (ED) Additional Instructions: Take medications as prescribed. Drink plenty of fluids. Return to the emergency department if you are not able to tolerate anything by mouth or your symptoms worsen. Medical Decision Making Emergent evaluation of chills and abdominal pain. Initial differential includes viral illness, intra-abdominal infection, drug withdrawal. Patient is noted to be profoundly diaphoretic and his clothes are soaked however he does not have a fever and his vital signs are otherwise unremarkable. He strongly denies drug use. Plan for lab work, fluid resuscitation and close monitoring. 1034: Patient's lactic acid is significantly elevated. His CBC reviewed, he also has mild leukocytosis. I have added additional IV fluids and blood cultures. Will also order broad-spectrum antibiotics. The lipase is slightly above normal. 1500: After fluid resuscitation, lactic acid is returned towards normal. The CT scan did not demonstrate acute findings in the abdomen. He is feeling better, no longer having chills. He is tolerating liquids. Unclear etiology of the lactic acidosis. Symptoms may be mild pancreatitis. Will discharge with Zofran and Bentyl. Strict return precautions advised. Discharged in stable condition. Medical Records Medical records reviewed: Yes I reviewed the patient's medical records. Lab Data Lab results reviewed: Yes I reviewed the patient's lab results. ECG Data Attestation: I personally reviewed and interpreted this ECG (s) as follows: Prior ECG tracings: not available for review Interpretation: Sinus bradycardia, 57, artifact present, no acute ischemic changes HPI General Date/Time Provider Initiated Documentation: 11/14/23 09:33 . Limitations to Documentation: physical limitation . Information obtained by: patient . HPI Narrative: 53-year-old gentleman with past medical history of substance abuse presents for evaluation of abdominal pain and not feeling well. Reports symptoms have been ongoing for the last several hours. Patient reports that he feels very cold and that he cannot get warm. He states that he has been shaking and shivering. No known sick contacts. Reports vomiting and diarrhea. Having intense generalized abdominal pain. Reports that he takes Suboxone and was able to take that today. He denies any other drug use or alcohol use. Related Data Home Medications Medication Instructions Recorded Confirmed omeprazole 20 mg tablet,delayed 20 mg PO DAILY 02/21/20 11/14/23 release clonidine HCl 0.2 mg tablet 0.2 mg PO TID 07/29/21 11/14/23 buprenorphine 8 mg-naloxone 2 mg 2 film sublingual DAILY 07/04/22 11/14/23 sublingual film (Suboxone) dexmethylphenidate 15 mg 40 mg PO DAILY 07/04/22 11/14/23 capsule,extended release [id number] (Focalin XR) escitalopram oxalate 20 mg tablet 40 mg PO DAILY 07/04/22 11/14/23 (Lexapro) gabapentin 100 mg capsule 300 mg PO BID 07/04/22 11/14/23 lurasidone 40 mg tablet (Latuda) 40 mg PO DAILY 07/04/22 11/14/23 zolpidem 5 mg tablet (Ambien) 5 mg PO QHS PRN 07/04/22 11/14/23 albuterol sulfate 90 mcg/actuation 2 puff inhalation Q6H PRN 08/24/22 11/14/23 aerosol inhaler (ProAir HFA) shortness of breath or wheezing #8.5 grams prazosin 1 mg capsule 1 mg PO QHS 10/05/22 11/14/23 budesonide-formoterol HFA 80 inhalation PRN 12/06/22 12/21/22 mcg-4.5 mcg/actuation aerosol inhaler (Symbicort) budesonide-formoterol HFA 80 2 puff inhalation BID #10.2 grams 03/04/23 11/14/23 mcg-4.5 mcg/actuation aerosol inhaler (Symbicort) dicyclomine 10 mg capsule 10 mg PO TID PRN abdominal pain 11/14/23 #20 caps ondansetron 4 mg disintegrating 4 mg PO Q6H PRN nausea and 11/14/23 tablet vomiting #30 tabs Previous Rx's Medication Instructions Recorded albuterol sulfate 90 mcg/actuation 2 puff inhalation Q6H PRN 08/24/22 aerosol inhaler (ProAir HFA) shortness of breath or wheezing #8.5 grams budesonide-formoterol HFA 80 2 puff inhalation BID #10.2 grams 03/04/23 mcg-4.5 mcg/actuation aerosol inhaler (Symbicort) dicyclomine 10 mg capsule 10 mg PO TID PRN abdominal pain 11/14/23 #20 caps ondansetron 4 mg disintegrating 4 mg PO Q6H PRN nausea and 11/14/23 tablet vomiting #30 tabs Allergies Allergy/AdvReac Type Severity Reaction Status Date / Time mushroom Allergy Unknown Verified 11/14/23 09:33 sulfamethoxazole Allergy Hives Unverified 11/14/23 09:33 [From Bactrim] trimethoprim [From Bactrim] Allergy Hives Unverified 11/14/23 09:33 General Stated Complaint: Abd Prob MANUEL: 3 PFSH All Active Problems (Updated 11/14/23 @ 15:08 by Xavier Son MD) Abdominal pain (Acute) Elevated lactic acid level (Acute) Chills (Acute) COVID (Acute) Inguinal hernia (Acute) Hepatitis (Acute) Shortness of breath (Acute) Unintentional weight loss (Acute) Screening for colon cancer (Acute) Medical History Hepatitis C ADHD Bipolar disorder History of prediabetes Chronic low back pain GERD (gastroesophageal reflux disease) RLS (restless legs syndrome) PTSD (post-traumatic stress disorder) Rash Narcotic abuse in remission Surgical History History of colonoscopy (~11/17/22) History of appendectomy Social History Smoking/Tobacco Use Status: Never Smoking risk assessment performed?: Yes Alcohol Intake: former Drug use: Occasionally Substance use type: marijuana and other Current gender identity: male Do you feel safe at home: Yes Do you feel safe in your relationship?: Yes Exam Narrative Exam Narrative: Review of Systems: All systems reviewed & are unremarkable except as noted in HPI and below: CONSTITUTIONAL: Alert and oriented Well-developed, ill-appearing, shivering Diaphoretic HEENT: NCAT EYES: PERRL, no conjunctival injection MOUTH dry MM CVS: RRR, No murmurs or gallops. Peripheral pulses 2+ and equal in all extremities Brisk capillary refill in all extremities. No peripheral edema RESP: Unlabored respiratory effort, Clear to auscultation bilaterally No wheezes rales or rhonchi GI: Soft, Nontender, Nondistended, No organomegaly MSK: Extremities with full range of motion, no deformity or TTP SKIN: Warm, Dry. No rashes or lesions. NEURO: No focal neurologic deficits. switch cleaner II-XII grossly intact Sensation grossly intact Normal strength throughout PSYCH: + Anxious Course Vital Signs Vital signs: Vital Signs Temperature 36.1 C L 11/14/23 09:27 Pulse 60 11/14/23 09:27 Blood Pressure 150/83 H 11/14/23 09:27 Pulse Oximetry 100 11/14/23 09:27 Temperature 36.1 C L 11/14/23 09:27 Temperature Source Temporal Artery Scan 11/14/23 09:27 Pulse 60 11/14/23 09:27 Blood Pressure 150/83 H 11/14/23 09:27 Pulse Oximetry 100 11/14/23 09:27 Oxygen Delivery Method Room Air 11/14/23 09:27 Oxygen Flow Rate 0 11/14/23 09:27
[2023-11-14] MEDS: Droperidol 5 MG/2 ML VIAL IVP (10:18)
[2023-11-14] MEDS: Normal Saline 1,000 ML 1000 ML IV ×2 (10:19→12:35)
[2023-11-14 10:31] LABS: Abs Immature Grans 0.03 10^3/uL (0.0-0.06); Absolute Basophil Count 0.05 10^3/uL (0.0-0.2); Absolute Eosinophil Count 0.08 10^3/uL (0.0-0.7); Absolute Lymphocyte Count 1.36 10^3/uL (1.2-3.4); Absolute Monocyte Count 0.63 10^3/uL (0.1-0.8); Basophils % 0.4; Eosinophils % 0.7; HCT 45.8 % (40.0-50.0); HGB 15.7 g/dL (13.5-17.5); Immature Grans % 0.3; Lymphocytes % 11.5; MCH 28.8 pg (27.0-33.0); MCHC 34.3 % (32.0-36.0); MCV 84 fL (80-95); MPV 9.3 fL (8.0-11.0); Monocytes % 5.3; Neutrophils % 81.8; Platelet Count 228 10^3/uL (130-400); RBC 5.45 10^6/uL (4.36-5.78); RDW 11.9 % (11.8-14.1); WBC 11.86 10^3/uL (4.4-10.8)
[2023-11-14 10:32] LABS: Lactate 5.7 mmol/L (0.6-1.4)
[2023-11-14 10:48] LABS: ALT 29 U/L (16-63); AST 23 U/L (15-37); Albumin 4.7 g/dL (3.4-5.0); Alkaline Phosphatase 92 U/L (46-116); Anion Gap 14.4 mmol/L (3-11); BUN 16 mg/dL (7-18); Bilirubin, Total 0.3 mg/dL (0.2-1.0); CO2 25.6 mmol/L (21.0-32.0); CREATININE 1.1 mg/dL (0.70-1.30); Calcium 10.5 mg/dL (8.5-10.1); Chloride 103 mmol/L (98-107); Estimated GFR 80.27 (mL/min/1.73m2); Glucose 142 mg/dL (74-106); Lipase 80 U/L (16-77); Magnesium 1.9 mg/dL (1.8-2.4); Potassium 3.4 mmol/L (3.5-5.1); Sodium 143 mmol/L (136-145); Total Protein 9.1 g/dL (6.4-8.2)
[2023-11-14 10:53] LABS: Troponin I < 50 ng/L (<or=60)
[2023-11-14 11:08] LABS: COVID-19 PCR Negative (Negative); Influenza A PCR Negative (Negative); Influenza B PCR Negative (Negative); RSV PCR Negative (Negative)
[2023-11-14] MEDS: Normal Saline - Diluent 50 ML VIAL IV (11:12)
[2023-11-14] MEDS: Omnipaque 350 MG/ML 100 ML BTL IJ (11:15)
[2023-11-14 11:27] LABS: Source Nasopharynx
--- NOTE | 2023-11-14 11:30 | DI.CT_ITS ---
Exam(s) CT ABDOMEN PELVIS W EXAM: CT ABDOMEN PELVIS W CLINICAL HISTORY: abdominal pain. TECHNIQUE: Imaging Protocol: Axial computed tomography images with coronal and sagittal reformatted images were created and reviewed CONTRAST MATERIAL: Intravenous: Omnipaque 350 Contrast volume:100 ml Oral: no COMPARISON: CT CT ABDOMEN PELVIS W from 03/04/2023 FINDINGS: ABDOMEN and PELVIS: Lung Bases: No acute findings. Small hiatal hernia. Liver: Normal density. No measurable mass. Gallbladder and biliary tract: No radiodense calculus or dilation. Pancreas: Normal density. Calcifications in the head no inflammatory process. No evidence of mass. Spleen: Normal. Kidneys: Normal size, contour and axis. No radiodense stones. No obstructive uropathy. No suspicious masses seen. Adrenal glands: No masses seen. Vasculature: Abdominal aorta non-dilated. Soft tissues: Unremarkable. Bladder: No gross wall thickening. No calculi.No focal mass. Bowel: No obstruction. No bowel wall thickening. No evidence of appendicitis. Peritoneal cavity: No ascites. No focal collection or mesenteric inflammatory response. Bones: Unremarkable for age. Reproductive organs: Within normal limits. Lymph nodes: Unremarkable. IMPRESSION:: No acute abnormality in the abdomen and pelvis. RADIATION DOSE DELIVERED: Total DLP DATA REPOSITORY: All CT scans at this facility are submitted to the National Radiology Data Registry (NRDR) Dose Index Registry (DIR) with the [employer] (A[employer]). RADIATION OPTIMIZATION: All CT scans at this facility use at least one of these dose optimization te chniques: automated exposure control; mA and/or kV adjustment per patient size (includes targeted exa ms where dose is matched to clinical indication); or iterative reconstruction.
[2023-11-14] MEDS: PIPERACILLIN/TAZO 4.5 GM in Normal Saline 100 ML IVPB (11:43)
[2023-11-14 11:44] VITALS: BP 179/74; PULSE 59; O2SAT 100
[2023-11-14 11:51] VITALS: BP 179/74; PULSE 59; RESP 16; TEMP 36.1; O2SAT 100
[2023-11-14 13:32] LABS: Bilirubin Negative (Negative); Blood Negative (Negative); Clarity Clear (Clear); Glucose Negative (Negative); Ketones Negative (Negative); Leukocyte Esterase Negative (Negative); Nitrite Negative (Negative); Specific Gravity 1.015 (1.005-1.025); Urobilinogen 0.2 mg/dL (Up to 0.2); pH 8.5 (5-8)
[2023-11-14 13:49] LABS: *AMPHETAMINES SCREEN URINE Negative (Negative); *BARBITURATES SCREEN URINE Negative (Negative); *BENZODIAZEPINES SCREEN URINE Negative (Negative); Cannabinoids THC Positive (Negative); Cocaine Screen,Urine Negative (Negative); METHADONE URINE SCREEN Negative (Negative); OPIATES URINE SCREEN Negative (Negative)
[2023-11-14 13:51] LABS: Tricyclic Antidepressants Negative (Negative)
[2023-11-14 14:08] LABS: Lactate 1.6 mmol/L (0.6-1.4)
[2023-11-14 15:23] VITALS: BP 179/92; PULSE 78; TEMP 38; O2SAT 97
== END 2023-11-14 15:44 | disposition home or self-care (01) ==
PROVIDERS: Emergency Provider Emergency Medicine; PCP Family Medicine
DX: R10.9 Unspecified abdominal pain (principal); R79.89 Other specified abnormal findings of blood chemistry; R68.83 Chills (without fever); R74.02 Elevation of levels of lactic acid dehydrogenase [LDH]
CPT/HCPCS: 36415; 80053; 80307; 83690; 87040; 87637; 93005; 96365; 96368; 96375; 99284; 74177; 81003; 83605; 83735; 84484; 85025; 93010; 99283; J1790; J2543; J3490

== ENCOUNTER 2024-07-02 21:57 | Outpatient (REF) | payer MEDICAID, SELFPAY ==
[2024-07-02 17:00] LABS: Abs Immature Grans 0.02 10^3/uL (0.0-0.06); Absolute Basophil Count 0.05 10^3/uL (0.0-0.2); Absolute Eosinophil Count 0.09 10^3/uL (0.0-0.7); Absolute Lymphocyte Count 1.45 10^3/uL (1.2-3.4); Absolute Monocyte Count 0.41 10^3/uL (0.1-0.8); Absolute Neutrophil Count 3.21 10^3/uL (1.2-6.7); Eosinophils % 1.7 %; HCT 44.7 % (40.0-50.0); HGB 14.8 g/dL (13.5-17.5); Immature Grans % 0.4 %; Lymphocytes % 27.7 %; MCH 29.5 pg (27.0-33.0); MCHC 33.1 % (32.0-36.0); MCV 89 fL (80-95); MPV 9.9 fL (8.0-11.0); Monocytes % 7.8 %; Neutrophils % 61.4 %; Platelet Count 262 10^3/uL (130-400); RBC 5.02 10^6/uL (4.36-5.78); RDW 12.3 % (11.8-14.1); RDW-SD 40.1 fL; WBC 5.23 10^3/uL (4.4-10.8)
[2024-07-02 17:51] LABS: ALT 94 U/L (16-63); AST 70 U/L (15-37); Albumin 4.4 g/dL (3.4-5.0); Alkaline Phosphatase 93 U/L (46-116); Anion Gap 8.1 mmol/L (3-11); BUN 12 mg/dL (7-18); Bilirubin, Total 0.23 mg/dL (0.2-1.0); CO2 30.9 mmol/L (21.0-32.0); CREATININE 0.9 mg/dL (0.70-1.30); Chloride 101 mmol/L (98-107); Estimated GFR 102.12 (mL/min/1.73m2); Glucose 105 mg/dL (74-106); Sodium 140 mmol/L (136-145); TSH (W/Ref FT4) 1.66 uIU/mL (0.36-3.74); Total Protein 8.5 g/dL (6.4-8.2)
[2024-07-02 18:13] LABS: Hemoglobin A1C 5.6 % (<5.7)
== END 2024-07-02 21:58 | disposition home or self-care (01) ==
LOC: NCHCN 21:57
PROVIDERS: PCP Family Medicine; Visit Provider Nurse Practitioner Family
DX: R73.03 Prediabetes (principal); R61 Generalized hyperhidrosis
CPT/HCPCS: 80053; 83036; 84443; 85025

== ENCOUNTER 2024-07-05 08:13 | Emergency (ER) | payer MEDICAID, SELFPAY ==
[2024-07-05 08:15] VITALS: BP 107/82; PULSE 103; RESP 15; TEMP 36.6; O2SAT 98
--- NOTE | 2024-07-05 08:45 | RT.EKG_ITS ---
APPROVED REPORT Exam: Resting ECG Reason for Exam: sweaty, abd pain Patient Location: E HR:83 bpm ECG Measurements Heart Rate 83 AXIS IA 149 P 50 QRSd 83 QRS 63 QT 364 T 1 QTc 428 Conclusion Sinus rhythm T-wave inversion III, aVF Early repol pattern V5/V6, no STEMI
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
[2024-07-05] MEDS: Lactated Ringers 1,000 ML 1000 ML IV (08:58)
[2024-07-05] MEDS: Ondansetron 4 MG/2 ML VIAL IVP (09:06)
[2024-07-05] MEDS: Ketorolac 15 MG/ML VIAL IVP (09:06)
[2024-07-05 09:14] VITALS: BP 107/82; PULSE 103; RESP 15; TEMP 36.6; O2SAT 98
--- NOTE | 2024-07-05 09:15 | DI.CT_ITS ---
Exam(s) CT ABDOMEN PELVIS W EXAM: CT ABDOMEN PELVIS W CLINICAL HISTORY: RUQ and epigastric pain, eval gallbladder, pancrea TECHNIQUE: Imaging Protocol: Axial computed tomography images with coronal and sagittal reformatted images were created and reviewed. CONTRAST MATERIAL: Intravenous: Omnipaque 350 Contrast volume:100 mL Oral: No COMPARISON: CT CT ABDOMEN PELVIS W from 11/14/2023 FINDINGS: ABDOMEN: Lung Bases: Normal where visualized. Liver: There is decreased attenuation of the liver suggesting fatty infiltration. No measurable mass . Portal, Superior Mesenteric, and Splenic Veins: Unremarkable. Gallbladder and Biliary Tract: No radiodense calculus or dilation. Pancreas: There again seen calcifications in the pancreas suggestive of prior pancreatitis. No acute abnormalities identified. Spleen: Normal. Adrenals: No masses seen. Kidneys: Normal size, contour and axis. No radiodense stones or obstructive uropathy. No masses seen. Abdominal Aorta: Abdominal portion non-dilated. Bowel: No obstruction or bowel wall thickening. There is no evidence of appendicitis. Peritoneal Cavity: No ascites, collection or mesenteric inflammatory response. No free air. Lymph Nodes: Within normal limits. Bones: Within normal limits for the patient's age. Soft Tissues: Unremarkable. PELVIS: Bladder: Symmetric distention, no gross wall thickening. Reproductive Organs: Unremarkable as visualized. Lymph Nodes: Within normal limits. Bones: Within normal limits for the patient's age. IMPRESSION: No acute abdominal or pelvic process. RADIATION DOSE DELIVERED: Total DLP DATA REPOSITORY: All CT scans at this facility are submitted to the National Radiology Data Registry (NRDR) Dose Index Registry (DIR) with the [employer] (ACR). RADIATION OPTIMIZATION: All CT scans at this facility use at least one of these dose optimization te chniques: automated exposure control; mA and/or kV adjustment per patient size (includes targeted exa ms where dose is matched to clinical indication); or iterative reconstruction.
[2024-07-05 09:26] LABS: Abs Immature Grans 0.01 10^3/uL (0.0-0.06); Absolute Basophil Count 0.03 10^3/uL (0.0-0.2); Absolute Eosinophil Count 0.01 10^3/uL (0.0-0.7); Absolute Lymphocyte Count 1.03 10^3/uL (1.2-3.4); Absolute Monocyte Count 0.48 10^3/uL (0.1-0.8); Absolute Neutrophil Count 5.24 10^3/uL (1.2-6.7); Basophils % 0.4 %; Eosinophils % 0.1 %; HCT 42.2 % (40.0-50.0); HGB 14.5 g/dL (13.5-17.5); Immature Grans % 0.1 %; Lymphocytes % 15.1 %; MCH 29.4 pg (27.0-33.0); MCHC 34.4 % (32.0-36.0); Monocytes % 7.1 %; Neutrophils % 77.2 %; Platelet Count 259 10^3/uL (130-400); RBC 4.94 10^6/uL (4.36-5.78); RDW 12.1 % (11.8-14.1); RDW-SD 37.5 fL
[2024-07-05 09:27] LABS: MCV 85 fL (80-95)
[2024-07-05 09:37] LABS: Bilirubin Small (Negative); Blood Negative (Negative); Clarity Clear (Clear); Glucose Negative (Negative); Ketones Trace mg/dL (Negative); Leukocyte Esterase Negative (Negative); Nitrite Negative (Negative)
[2024-07-05 09:48] LABS: ALT 74 U/L (16-63); AST 37 U/L (15-37); Alkaline Phosphatase 84 U/L (46-116); Anion Gap 7.2 mmol/L (3-11); BUN 19 mg/dL (7-18); Bilirubin, Total 0.52 mg/dL (0.2-1.0); CO2 29.8 mmol/L (21.0-32.0); CREATININE 1.1 mg/dL (0.70-1.30); Calcium 9.1 mg/dL (8.5-10.1); Chloride 101 mmol/L (98-107); Estimated GFR 80.27 (mL/min/1.73m2); Glucose 112 mg/dL (74-106); Magnesium 1.8 mg/dL (1.8-2.4); Potassium 4.1 mmol/L (3.5-5.1); Sodium 138 mmol/L (136-145); Total Protein 7.7 g/dL (6.4-8.2); Troponin I < 50 ng/L (< or =60)
[2024-07-05 09:53] LABS: Bacteria Negative HPF (Negative); C & S Indicated? No; Crystals Negative HPF (Negative); Epithelial Cells Rare HPF (Negative); Mucus Heavy (Negative); Other Cells Few Renal (Negative); RBC 0-2 HPF (0-2); WBC 0-2 HPF (0-5)
[2024-07-05] MEDS: Normal Saline - Diluent 50 ML VIAL IJ (10:00)
[2024-07-05 10:01] LABS: Lipase 47 U/L (16-77)
[2024-07-05] MEDS: Omnipaque 350 MG/ML 500 ML BTL-Imaging package 100 ML IJ (10:01)
[2024-07-05 10:49] VITALS: BP 124/83; PULSE 85; RESP 18; TEMP 36.8; O2SAT 98
== END 2024-07-05 10:58 | disposition home or self-care (01) ==
PROVIDERS: Emergency Provider Emergency Medicine; PCP Family Medicine
DX: R11.2 Nausea with vomiting, unspecified (principal); R10.31 Right lower quadrant pain; R10.11 Right upper quadrant pain; R68.83 Chills (without fever)
CPT/HCPCS: 36415; 76705; 80053; 83690; 93005; 96361; 96374; 96375; 99285; 74177; 81003; 81015; 83735; 84484; 85025; 93010; 99283; J1885; J2405

== ENCOUNTER 2024-08-11 09:16 | Emergency (ER) | payer MEDICAID, SELFPAY ==
[2024-08-11] VITALS (18 sets, daily range): BP systolic 121–142; BP diastolic 75–97; PULSE 73–108; RESP 11–36; TEMP 36.8; O2SAT 93–98
--- NOTE | 2024-08-11 09:15 | RT.EKG_ITS ---
APPROVED REPORT Exam: Resting ECG Reason for Exam: sob Patient Location: E HR:82 bpm ECG Measurements Heart Rate 82 AXIS UT 134 P 26 QRSd 81 QRS 74 QT 367 T -9 QTc 429 Conclusion Sinus rhythm 82 normal axis no stemi
--- NOTE | 2024-08-11 09:57 | ED.GENADUL_ITS ---
Discharge Plan Disposition Patient Disposition: Home Condition: Stable Discharge Details Clinical Impression: Anxiety, Poor fluid intake Primary Care Provider: TIAGO BRYAN ED Provider: Xavier Son Home Meds and New Rx's Prescriptions: No Action prazosin 1 mg capsule 1 mg PO QHS dexmethylphenidate [Focalin XR] 15 mg capsule,ER biphasic 50-50 40 mg PO DAILY buprenorphine-naloxone [Suboxone] 8-2 mg film 2 film sublingual DAILY Rx Instructions: place 1 strip/tab under (each) side of tongue escitalopram oxalate [Lexapro] 20 mg tablet 40 mg PO DAILY Latuda 40 mg tablet 40 mg PO DAILY Rx Instructions: must administer with food (at least 350 calories) gabapentin 100 mg capsule 400 mg PO BID omeprazole 20 mg Tablet,Delayed Release (Dr/Ec) 40 mg PO DAILY albuterol sulfate [ProAir HFA] 90 mcg/actuation HFA aerosol inhaler 2 puff inhalation Q6H PRN (Reason: shortness of breath or wheezing) Qty: 8.5 0RF budesonide-formoterol [Symbicort] 80-4.5 mcg/actuation Hfa Aerosol Inhaler 1 inh INHALATION BID PRN Patient Comments: Pt states he does not have this inhaler since he changed providers clonidine HCl 0.2 mg tablet 0.2 mg PO TID Discharge Instructions Additional Instructions: * Lab work and EKG today were reassuring. You were given medication to help with your anxiety symptoms as well as your appetite and were given IV fluids. * Please continue your medication as prescribed * Try to advance your diet or drink fluids with electrolytes to maintain hydration * Please follow-up with your PCP this week for reevaluation of your ongoing symptoms HPI General Date/Time Provider Initiated Documentation: 08/11/24 09:18 . Limitations to Documentation: no limitations . Information obtained by: patient . HPI Narrative: 54-year-old gentleman with past medical history including anxiety, GERD presents for evaluation of 3 days of feeling very anxious. He reports that he feels very stressed. He states that this is the third time this has happened to him. He reports a decrease in appetite and that he has not eaten any food in 3 days. He states that he has not had any nausea vomiting or abdominal pain. Denies any fever. He reports that he has only had water to drink. Denies any alcohol or drug use. Reports that he did take a clonidine this morning but he does not feel like it has helped. He says that he does have a therapist, and has talked to them about the symptoms, but they have not provided any diagnosis or suggestions. Related Data Home Medications ?Medication ?Instructions ?Recorded ?Confirmed omeprazole 20 mg tablet,delayed 40 mg PO DAILY 02/21/20 08/11/24 release clonidine HCl 0.2 mg tablet 0.2 mg PO TID 07/29/21 08/11/24 buprenorphine 8 mg-naloxone 2 mg 2 film sublingual DAILY 07/04/22 08/11/24 sublingual film (Suboxone) dexmethylphenidate 15 mg 40 mg PO DAILY 07/04/22 08/11/24 capsule,extended release [id number] (Focalin XR) escitalopram oxalate 20 mg tablet 40 mg PO DAILY 07/04/22 08/11/24 (Lexapro) gabapentin 100 mg capsule 400 mg PO BID 07/04/22 08/11/24 lurasidone 40 mg tablet (Latuda) 40 mg PO DAILY 07/04/22 08/11/24 albuterol sulfate 90 mcg/actuation 2 puff inhalation Q6H PRN 08/24/22 08/11/24 aerosol inhaler (ProAir HFA) shortness of breath or wheezing #8.5 grams prazosin 1 mg capsule 1 mg PO QHS 10/05/22 08/11/24 budesonide-formoterol HFA 80 1 inh inhalation BID PRN 12/06/22 08/11/24 mcg-4.5 mcg/actuation aerosol inhaler (Symbicort) Previous Rx's ?Medication ?Instructions ?Recorded albuterol sulfate 90 mcg/actuation 2 puff inhalation Q6H PRN 08/24/22 aerosol inhaler (ProAir HFA) shortness of breath or wheezing #8.5 grams Allergies Allergy/AdvReac Type Severity Reaction Status Date / Time mushroom Allergy Unknown Unknown Verified 08/11/24 09:24 sulfamethoxazole (From Allergy Hives Unverified 08/11/24 09:24 Bactrim) trimethoprim (From Bactrim) Allergy Hives Unverified 08/11/24 09:24 General Stated Complaint: Anxiety MANUEL: 4 Exam Narrative Exam Narrative: Review of Systems: All systems reviewed & are unremarkable except as noted in HPI and below Well-developed, no acute distress NCAT Mild tachycardia no murmur Unlabored respiratory effort, clear bilaterally Nondistended abdomen soft nontender no focal neurologic deficits Anxious, no SI or HI, is fidgety and moving around a lot in bed Course Vital Signs Vital signs: Vital Signs Temperature 36.8 C 08/11/24 09:19 Pulse 108 H 08/11/24 09:19 Respiratory Rate 20 08/11/24 09:19 Blood Pressure 121/84 08/11/24 09:19 Pulse Oximetry 98 08/11/24 09:19 Temperature 36.8 C 08/11/24 09:19 Temperature Source Temporal Artery Scan 08/11/24 09:19 Pulse 108 H 08/11/24 09:19 Pulse 96 H 08/11/24 09:41 Respiratory Rate 17 08/11/24 09:41 Respiratory Effort Normal, Non-Labored 08/11/24 09:30 Respiratory Depth Normal 08/11/24 09:30 Respiratory Pattern Normal 08/11/24 09:30 Blood Pressure 121/84 08/11/24 09:19 Blood Pressure Position Sitting 08/11/24 09:19 Pulse Oximetry 95 08/11/24 09:41 Oxygen Delivery Method Room Air 08/11/24 09:19 Oxygen Flow Rate 0 08/11/24 09:19 Pain Level 0 08/11/24 09:19 Medical Decision Making Emergent evaluation of anxiety and stress . Patient has a benign physical examination with no focal findings. He is noted to be very slightly tachycardic on examination however his EKG does not demonstrate this. EKG was reviewed and independently interpreted. Sinus [address] no acute ST segment changes. He has presented to the emergency department with similar symptoms previous and no abnormalities were identified. He does take SSRI and clonidine for anxiety and depression. He denies any alcohol or drug use. It is concerning that the patient reports that he has had no food intake for the last 3 days. Initial differential includes dehydration, electrolyte derangement, anxiety, panic disorder. 1015 patient noted to by hypoxic on monitor. finger probe moved around, but still maintaining a sat of 87% on RA with a good pleth. This is surprising as the patient is not having any SOB, or increased work of breathing. Different cords were tried and this alleviated the abnormalit y and the patient was 98 % on RA. Lab work was reviewed. The patient did have a slight elevation in BUN and anion gap, which is likely due to his poor oral intake. He was given IV fluids. Renal function is at normal. His symptoms resolved after IV droperidol. I encouraged the patient to have close follow-up with his PCP for reevaluation of ongoing symptoms. Quality:SDOH Health Related Social Needs: No Data to Display PFSH All Active Problems (Updated 08/11/24 @ 10:43 by Xavier Son MD) Poor fluid intake (Acute) Anxiety (Chronic) COVID (Acute) Inguinal hernia (Acute) Hepatitis (Acute) Shortness of breath (Acute) Unintentional weight loss (Acute) Screening for colon cancer (Acute) Medical History Hepatitis C ADHD Bipolar disorder History of prediabetes Chronic low back pain GERD (gastroesophageal reflux disease) RLS (restless legs syndrome) PTSD (post-traumatic stress disorder) Rash Narcotic abuse in remission Surgical History History of colonoscopy (~11/17/22) History of appendectomy Social History Smoking/Tobacco Use Status: Never Smoking risk assessment performed?: Yes Alcohol Intake: current Alcohol Intake frequency: a few times a month Alcohol type: beer Drug use: Occasionally Substance use type: marijuana and other Current gender identity: male Do you feel safe at home: Yes Do you feel safe in your relationship?: Yes
[2024-08-11 10:21] LABS: Anion Gap 13.7 mmol/L (3-11); BUN 26 mg/dL (7-18); CO2 23.3 mmol/L (21.0-32.0); CREATININE 1.1 mg/dL (0.70-1.30); Calcium 9.9 mg/dL (8.5-10.1); Chloride 100 mmol/L (98-107); Estimated GFR 79.77 (mL/min/1.73m2); Glucose 132 mg/dL (74-106); Potassium 3.6 mmol/L (3.5-5.1); Sodium 137 mmol/L (136-145)
[2024-08-11] MEDS: Normal Saline 1,000 ML 1000 ML IV (10:21)
[2024-08-11] MEDS: Droperidol 5 MG/2 ML VIAL 2.5 MG IVP (10:21)
== END 2024-08-11 10:53 | disposition home or self-care (01) ==
PROVIDERS: Emergency Provider Emergency Medicine; PCP Nurse Practitioner Family
DX: F41.9 Anxiety disorder, unspecified (principal); R42 Dizziness and giddiness; R51.9 Headache, unspecified
CPT/HCPCS: 36415; 80048; 82805; 93005; 96374; 99284; 85025; 85379; 93010; 99283; J1790

== ENCOUNTER 2025-01-10 00:23 | Outpatient (CLI) | payer MEDICAID, SELFPAY ==
--- NOTE | 2025-01-10 | DI.CT_ITS ---
Exam(s) CT CHEST WO EXAM: CT CHEST WO CLINICAL HISTORY: ABNL WT LOSS,R63.4. TECHNIQUE: Multi planar reconstructions were performed. CONTRAST MATERIAL: None COMPARISON: CR,XR XR CHEST 2V PA LATERAL from 03/04/[address] ABDOMEN PELVIS W from 07/05/2024 FINDINGS: CHEST: LUNGS: There is a tiny 2 mm noncalcified nodule in the lateral aspect of the left upper lobe (series 2/image 75). No other focal findings in the left lung. There are no significant focal findings in t he right upper and right middle lobes. There is a small subtle area of ground-glass infiltrate in th e right lower lobe (series 2/image 111). No other focal findings in the right lung and no pleural ef fusion MEDIASTINUM: There is no obvious hilar adenopathy on this non few study. However, there are some enl arged subcarinal lymph nodes. There are also slightly prominent pretracheal and aortopulmonic window lymph nodes. There is no supraclavicular adenopathy. No significant axillary adenopathy. Visualiz ed thyroid unremarkable. CARDIAC: Heart size is normal. There is no pericardial effusion.Caliber of the thoracic aorta is wit hin normal limits. VISUALIZED UPPER ABDOMEN:Pancreatic calcifications in the head and uncinate process are noted. No ob vious pancreatic mass nor dilatation pancreatic duct. Spleen size is upper normal. There are no adr enal masses. OSSEOUS: No significant osseous lesions.No fractures.. IMPRESSION: 1. There is a small area of subtle ground-glass infiltrate in the right lower lobe. There is also a tiny 2 millimeter nodule in the lateral aspect of the left upper lobe. 2. No other pulmonary findings nor pleural effusions. 3. However, there does appear to be enlarged lymph nodes in the subcarinal region as well as slighttl y prominent lymph nodes in the mediastinum. If clinically indicated contrast infused CT scan of the chest, abdomen, and pelvis can be performed t o determine is there is adenopathy elsewhere in the abdomen/pelvis RADIATION DOSE DELIVERED: 163.9mGy.cm Total DLP DATA REPOSITORY: All CT scans at this facility are submitted to the National Radiology Data Registry (NRDR) Dose Index Registry (DIR) with the [employer] (ACR). RADIATION OPTIMIZATION: All CT scans at this facility use at least one of these dose optimization te chniques: automated exposure control; mA and/or kV adjustment per patient size (includes targeted exa ms where dose is matched to clinical indication); or iterative reconstruction.
== END 2025-01-10 00:43 ==
LOC: DI 00:23
PROVIDERS: PCP Nurse Practitioner Family; Visit Provider Nurse Practitioner Family
DX: R63.4 Abnormal weight loss (principal); R91.8 Other nonspecific abnormal finding of lung field
CPT/HCPCS: 71250

== ENCOUNTER 2025-03-26 14:20 | Outpatient (REF) | payer MEDICAID, SELFPAY ==
[2025-03-26 20:01] LABS: Hemoglobin A1C 5.8 % (<5.7)
[2025-03-26 20:08] LABS: ALT 26 U/L (16-63); AST 33 U/L (15-37); Albumin 4.1 g/dL (3.4-5.0); Alkaline Phosphatase 75 U/L (46-116); Anion Gap 6.7 mmol/L (3-11); BUN 10 mg/dL (7-18); Bilirubin, Total 0.3 mg/dL (0.2-1.0); CO2 29.3 mmol/L (21.0-32.0); CREATININE 0.9 mg/dL (0.70-1.30); Calcium 9.4 mg/dL (8.5-10.1); Calculated LDL 157 mg/dL (<100); Chloride 103 mmol/L (98-107); Cholesterol 233 mg/dL (<200); Estimated GFR 101.49 (mL/min/1.73m2); Glucose 92 mg/dL (74-106); HDL Cholesterol 56 mg/dL (>or=40); Potassium 4.1 mmol/L (3.5-5.1); Sodium 139 mmol/L (136-145); Total Protein 7.8 g/dL (6.4-8.2); Triglyceride 103 mg/dL (<150)
[2025-04-01 06:13] LABS: Methylphenidate Negative ng/mL (Cutoff: 10); Ritalinic Acid Negative ng/mL (Cutoff: 50)
== END 2025-03-26 14:21 | disposition home or self-care (01) ==
LOC: NCHCN 14:20
PROVIDERS: PCP Nurse Practitioner Family; Visit Provider Nurse Practitioner Psychiatric/Mental Health
DX: F90.9 Attention-deficit hyperactivity disorder, unspecified type (principal); Z00.00 Encounter for general adult medical examination without abnormal findings; Z79.899 Other long term (current) drug therapy
CPT/HCPCS: 80053; 80061; 80360; 83036

== ENCOUNTER 2025-04-09 11:54 | Outpatient (REF) | payer MEDICAID, SELFPAY ==
[2025-04-16 13:40] LABS: Methylphenidate 496 ng/mL (Cutoff: 10); Ritalinic Acid 13187 ng/mL (Cutoff: 50)
== END 2025-04-09 11:55 | disposition home or self-care (01) ==
LOC: NCHCN 11:54
PROVIDERS: PCP Nurse Practitioner Family; Visit Provider Nurse Practitioner Psychiatric/Mental Health
DX: F90.9 Attention-deficit hyperactivity disorder, unspecified type (principal); Z79.899 Other long term (current) drug therapy
CPT/HCPCS: 80360